=== PATIENT | male | born 1945 | race Caucasian/White ===

== ENCOUNTER 2024-04-04 11:56 | Inpatient (IN) | payer MEDICARE, OTHER, SELFPAY ==
[2024-04-04] VITALS (17 sets, daily range): BP systolic 30–184; BP diastolic 53–109; PULSE 81–94
--- NOTE | 2024-04-04 10:41 | ED.GENMED ---
ED Provider Triage
<Ian Kirk PA-C - Last Filed: 04/04/24 10:42>
-
Patient seen by provider in Triage?: Seen in Triage
Attestation: A medical screening examination has been initiated by a qualified medical provider. Based on the assessment performed at this time, it has been determined that an emergent medical condition may exist and the patient has been informed
that further medical evaluation and possible additional diagnostic testing may be needed.
HPI: 78-year-old male presents with painful cold and numb left lower leg. He states it is painful from the knee down. At triage his left lower leg is cold to the touch and we are unable to easily find pulses to the foot. Notified nurse to find
him a room immediately.
GENERAL: Alert , in no apparent distress
EYE: No visual abnormalities.
NECK: Trachea midline
ENT: No visible abnormalities.
LUNGS: No acute respiratory distress
NEUROLOGICAL: Alert and oriented
SKIN: Skin intact. No visible changes.
MUSCULOSKELETAL: Moving extremities normally
PSYCH: Normal and appropriate interaction.
This is a medical evaluation conducted in person to initiate diagnostic evaluation and provide initial therapeutics. Please see further documentation by the treating clinician.
History of Present Illness
<Ian Kirk PA-C - Last Filed: 04/04/24 10:42>
General
Chief Complaint: Circulation Problem
Time Seen by Provider: 04/04/24 10:43
<Ming Rocha PA-C - Last Filed: 04/04/24 12:52>
General
Source: patient
History of Present Illness
History of Present Illness:
78-year-old male with past medical history of previous AAA status post repair in 2021, hypertension, anemia, COPD presenting to the emergency department after awakening this morning at 8 AM and noticing his left lower extremity was cold, limited
range of motion, and increased pain. Patient states he has never had any history of similar. Denies any symptoms consistent with claudication recently. Denies any fevers or any other concerns. Patient notes he does not take any anticoagulant
medicine although he does have aspirin listed on his medication list.
Past History
<Ian Kirk PA-C - Last Filed: 04/04/24 10:42>
Past History
ED Past Medical History: HTN and Hypercholesterolemia
ED Past Surgical History: Other (Hernia repair, AAA repair)
Social History
Tobacco: Non-smoker
Alcohol: None
Drug: None
Personal: Other
Living: with family
Employment: Other
Family History
Family History: Other
<Ming Rocha PA-C - Last Filed: 04/04/24 12:52>
Past History
ED Past Medical History: COPD and Other (Previous AAA repair)
Social History
Tobacco: Former smoker
Personal:
Living: alone
Review of Systems
<Ming Rocha PA-C - Last Filed: 04/04/24 12:52>
Review of Systems
All Other Systems: ROS reviewed and negative except as documented in HPI and ROS
Phy Exam
<Ming Rocha PA-C - Last Filed: 04/04/24 12:52>
Physical Exam
Physical Exam:
GENERAL: Alert , in no apparent distress
EYE: conjunctiva clear
NECK: Supple, no significant adenopathy.
ENT: o/p clr, mmm.
CARDIAC: Regular rate and rhythm
LUNGS: Clear breath sounds bilaterally, no acute respiratory distress, no wheezes/rales/rhonchi
NEUROLOGICAL: Alert and oriented
SKIN: Warm and dry, left lower extremity from the ankle distal is cyanotic
MUSCULOSKELETAL: left lower extremity: Cold, unable to range of motion toes, able to slightly invert and leana ankle but unable to plantar or dorsiflex. Unable to appreciate a pedal or tibial pulse via palpation or with Doppler. Palpable popliteal
and femoral pulse
PSYCH: Normal and appropriate interaction.
Scores
<Ming Rocha PA-C - Last Filed: 04/04/24 12:52>
Heart Failure Risk
Heart Failure Risk Score: Not Applicable
Heart Score for Chest Pain Patients
STEMI patient?: Not applicable
Withdrawal Assessment of Alcohol
Withdrawal Assessment Completed?: Not applicable
Course
<Ian Kirk PA-C - Last Filed: 04/04/24 10:42>
Orders/Labs/Results
Orders:
Orders
04/04/24 10:46
CT Abd Aorta Angio W/ Run Off Urgent
Comment:
Reason For Exam: cold, pale LLE
Heparin 5,000 units IV NOW STA
Pharmacy Request to Place See Dose Instructions PO NOW STA
Discontinue all Active Warfarin orders?: Yes
04/04/24 10:56
Type+Screen Urgent
Basic Metabolic Panel Urgent
Complete Blood Count/With Diff Urgent
PTT Urgent
Prothrombin Time Urgent
04/04/24 10:[address] Non Medication Order As Directed
Physician Order: PTT 6 hours after initial start of Heparin infusion
Above order entered?: Yes
04/04/24 11:00
Heparin 80261 Units/250 ml 25,000 units in 250 ml IV PER PROTOCOL
Weight to be used for heparin protocol in kilograms (kg):: 87.4
Protocol:: Vascular Surgery
PTT Goal Range to be used:: PTT 73 to 111 seconds
Order type:: Initial
INITIAL Infusion Dose (UNITS/KG/hr) & then follow protocol:: 18 units/kg/hr
Infusion Dose in UNITS/hr & then follow protocol (UNITS/hr):: 1,600
INFUSION RATE in mL/hr & then follow protocol (mL/hr):: 16
PTT less than or equal to 64 seconds:: Notify Ordering Provider. obtain orders for rate increase &
possible bolus
PTT 64.1 to 72.9 seconds:: Increase rate by 100 units/hr (+ 1 mL/hr)
PTT 73 to 111 seconds:: Target Range. No change in rate.
PTT 111.1 to 130.9 seconds:: Decrease rate by 100 units/hr (- 1 mL/hr)
PTT 131 to 199.9 seconds:: HOLD for 1 hour. Then decrease rate by 200 units/hr (- 2 mL/hr)
PTT greater than or equal to 200 seconds:: STOP INFUSION. Notify Ordering provider to obtain further orders.
Lab follow-up:: Each change, PTT q6h until 2 consecutive are therapeutic. Then PTT
daily.
Pharmacy Request to Place See Dose Instructions IV DIRECTED
04/04/24 11:22
Code Status As Directed
Resuscitation Status: Full Code
Bisacodyl [Dulcolax] 10 mg RECTAL [id number] PRN
Docusate W/Senna [Senokot-S] 1 tablet PO BIDPRN PRN
Polyethylene Glycol Powder [Miralax] 17 grams PO DAILYPRN PRN
Activity As Directed
Activity Level: Bedrest
Vascular Checks As Directed
Location: q1h
Vital Signs As Directed
Frequency: Per unit guidelines
04/04/24 11:24
Admit/Transfer Patient As Directed
Co-Sign Provider:
Level of Care: Inpatient admission
Assign to:: ICU
Physician / Group: Hospitalist: Fabian
Diagnosis: Acute LLE ischemia
Reason for Hospitalization: Acute LLE ischemia
Expected length of stay greater than two midnights?: Yes
ELOS- Estimated Length of Stay in days: 3
I certify the patient meets the requirements for IP care: Yes
Electrocardiogram (*1) Urgent
Reason for Study: PreOp
EKG- Treatment ONCE
PRN Pain Medication Management As Directed
May give lesser potent ordered pain med per pt: Yes
preference::
Protocol:: Medication orders for pain may be administered in a
manner that supports deferring to patient preference
when the pt is:
- Requesting an ordered lesser potent pain medication.
Least to most potent pain medications are defined
as: acetaminophen < NSAID < tramadol < opioids
(morphine, oxycodone, hydromorphone).
- Requesting a lesser dose of the same medication IF
ORDERED.
- Requesting a less intrusive route of administration
if both routes are prescribed by the provider (PO <
IV).
04/04/24 11:44
Dexamethasone Sod Phosphate [Decadron] 20 mg .ROUTE .STK-MED ONE
Heparin 10,000 units .ROUTE .STK-MED ONE
Lidocaine HCl/Pf [Xylocaine-Mpf 1% Vial] 50 mg .ROUTE .STK-MED ONE
Ondansetron Injectable [Zofran] 4 mg .ROUTE .STK-MED ONE
Propofol [Diprivan] 20 ml .ROUTE .STK-MED
Rocuronium [place] [Rocuronium] 50 mg .ROUTE .STK-MED ONE
04/04/24 11:49
PRN Pain Medication Management As Directed
May give lesser potent ordered pain med per pt: Yes
preference::
Protocol:: Medication orders for pain may be administered in a
manner that supports deferring to patient preference
when the pt is:
- Requesting an ordered lesser potent pain medication.
Least to most potent pain medications are defined
as: acetaminophen < NSAID < tramadol < opioids
(morphine, oxycodone, hydromorphone).
- Requesting a lesser dose of the same medication IF
ORDERED.
- Requesting a less intrusive route of administration
if both routes are prescribed by the provider (PO <
IV).
04/04/24 11:50
Martial Arts Instructor Consult Routine
Consulting Provider: Trevor Guzmán
Was physician already notified: Yes
Reason for consult: acute LLE ischemia
04/04/24 11:52
Fentanyl Citrate/Pf [Sublimaze] 100 mcg .ROUTE .STK-MED ONE
HYDROmorphone [Dilaudid] 0.5 mg IV Q3HPRN PRN
HYDROmorphone [Dilaudid] 1 mg IV Q4HPRN PRN
Midazolam HCl [Versed] 2 mg .ROUTE .STK-MED ONE
04/04/24 Dinner
NPO
Allow oral meds: Yes
Allow clear liquids: No
NPO with Ice Chips: Yes
04/04/24 17:20
PTT Urgent
04/05/24 06:00
BMP [Basic Metabolic Panel] IN AM
CBC/With Diff [Complete Blood Count/With Diff] IN AM
Magnesium IN AM
Phosphorus IN AM
04/06/24 06:00
BMP [Basic Metabolic Panel] IN AM
CBC/With Diff [Complete Blood Count/With Diff] IN AM
Magnesium IN AM
Phosphorus IN AM
04/07/24 06:00
BMP [Basic Metabolic Panel] IN AM
CBC/With Diff [Complete Blood Count/With Diff] IN AM
Magnesium IN AM
Phosphorus IN AM
Abnormal Lab Results
04/04/24
10:56
WBC 13.5 H 10^3/uL
(4.8-10.8)
RBC 4.41 L 10^6/uL
(4.70-6.10)
Hgb 12.4 L g/dL
(13.0-18.0)
MCHC 31.6 L g/dL
(33.0-37.0)
MPV 10.7 H fL
(7.4-10.4)
Abs Immat Gran (auto) 0.1 H 10^3/uL
(0-0.05)
Absolute Neuts (auto) 11.2 H 10^3/uL
(1.4-6.5)
Absolute Monos (auto) 0.8 H 10^3/uL
(0.1-0.6)
Immature Gran % 0.6 H %
(0-0.5)
Neutrophils % 83.2 H %
(42.2-75.2)
Lymphocytes % 8.8 L %
(20.5-51.1)
PT 14.7 H Sec
(11.4-14.6)
BUN 23 H mg/dl
(9-20)
Glucose 203 H mg/dl
(70-99)
04/04/24 10:56
04/04/24 10:56
Vital Signs
Initial and Last Documented VS:
Initial Vital Signs
Temp Pulse Resp BP Pulse Ox
98.1 F 64 16 184/97 99
04/04/24 10:31 04/04/24 10:31 04/04/24 10:31 04/04/24 10:31 04/04/24 10:31
Last Documented Vital Signs
Temp Pulse Resp BP Pulse Ox
98.1 F 68 33 180/97 98
04/04/24 10:31 04/04/24 12:30 04/04/24 12:30 04/04/24 12:00 04/04/24 12:30
<Ming Rocha PA-C - Last Filed: 04/04/24 12:52>
Orders/Labs/Results
Orders:
Orders
04/04/24 10:46
CT Abd Aorta Angio W/ Run Off Urgent
Comment:
Reason For Exam: cold, pale LLE
Heparin 5,000 units IV NOW STA
Pharmacy Request to Place See Dose Instructions PO NOW STA
Discontinue all Active Warfarin orders?: Yes
04/04/24 10:56
Type+Screen Urgent
Basic Metabolic Panel Urgent
Complete Blood Count/With Diff Urgent
PTT Urgent
Prothrombin Time Urgent
04/04/24 10:[address] Non Medication Order As Directed
Physician Order: PTT 6 hours after initial start of Heparin infusion
Above order entered?: Yes
04/04/24 11:00
Heparin [id number] Units/250 ml 25,000 units in 250 ml IV PER PROTOCOL
Weight to be used for heparin protocol in kilograms (kg):: 87.4
Protocol:: Vascular Surgery
PTT Goal Range to be used:: PTT 73 to 111 seconds
Order type:: Initial
INITIAL Infusion Dose (UNITS/KG/hr) & then follow protocol:: 18 units/kg/hr
Infusion Dose in UNITS/hr & then follow protocol (UNITS/hr):: 1,600
INFUSION RATE in mL/hr & then follow protocol (mL/hr):: 16
PTT less than or equal to 64 seconds:: Notify Ordering Provider. obtain orders for rate increase &
possible bolus
PTT 64.1 to 72.9 seconds:: Increase rate by 100 units/hr (+ 1 mL/hr)
PTT 73 to 111 seconds:: Target Range. No change in rate.
PTT 111.1 to 130.9 seconds:: Decrease rate by 100 units/hr (- 1 mL/hr)
PTT 131 to 199.9 seconds:: HOLD for 1 hour. Then decrease rate by 200 units/hr (- 2 mL/hr)
PTT greater than or equal to 200 seconds:: STOP INFUSION. Notify Ordering provider to obtain further orders.
Lab follow-up:: Each change, PTT q6h until 2 consecutive are therapeutic. Then PTT
daily.
Pharmacy Request to Place See Dose Instructions IV DIRECTED
04/04/24 11:22
Code Status As Directed
Resuscitation Status: Full Code
Bisacodyl [Dulcolax] 10 mg RECTAL [id number] PRN
Docusate W/Senna [Senokot-S] 1 tablet PO BIDPRN PRN
Polyethylene Glycol Powder [Miralax] 17 grams PO DAILYPRN PRN
Activity As Directed
Activity Level: Bedrest
Vascular Checks As Directed
Location: q1h
Vital Signs As Directed
Frequency: Per unit guidelines
04/04/24 11:24
Admit/Transfer Patient As Directed
Co-Sign Provider:
Level of Care: Inpatient admission
Assign to:: ICU
Physician / Group: Hospitalist: Fabian
Diagnosis: Acute LLE ischemia
Reason for Hospitalization: Acute LLE ischemia
Expected length of stay greater than two midnights?: Yes
ELOS- Estimated Length of Stay in days: 3
I certify the patient meets the requirements for IP care: Yes
Electrocardiogram (*1) Urgent
Reason for Study: PreOp
EKG- Treatment ONCE
PRN Pain Medication Management As Directed
May give lesser potent ordered pain med per pt: Yes
preference::
Protocol:: Medication orders for pain may be administered in a
manner that supports deferring to patient preference
when the pt is:
- Requesting an ordered lesser potent pain medication.
Least to most potent pain medications are defined
as: acetaminophen < NSAID < tramadol < opioids
(morphine, oxycodone, hydromorphone).
- Requesting a lesser dose of the same medication IF
ORDERED.
- Requesting a less intrusive route of administration
if both routes are prescribed by the provider (PO <
IV).
04/04/24 11:44
Dexamethasone Sod Phosphate [Decadron] 20 mg .ROUTE .STK-MED ONE
Heparin 10,000 units .ROUTE .STK-MED ONE
Lidocaine HCl/Pf [Xylocaine-Mpf 1% Vial] 50 mg .ROUTE .STK-MED ONE
Ondansetron Injectable [Zofran] 4 mg .ROUTE .STK-MED ONE
Propofol [Diprivan] 20 ml .ROUTE .STK-MED
Rocuronium [place] [Rocuronium] 50 mg .ROUTE .STK-MED ONE
04/04/24 11:49
PRN Pain Medication Management As Directed
May give lesser potent ordered pain med per pt: Yes
preference::
Protocol:: Medication orders for pain may be administered in a
manner that supports deferring to patient preference
when the pt is:
- Requesting an ordered lesser potent pain medication.
Least to most potent pain medications are defined
as: acetaminophen < NSAID < tramadol < opioids
(morphine, oxycodone, hydromorphone).
- Requesting a lesser dose of the same medication IF
ORDERED.
- Requesting a less intrusive route of administration
if both routes are prescribed by the provider (PO <
IV).
04/04/24 11:50
Martial Arts Instructor Consult Routine
Consulting Provider: Trevor Guzmán
Was physician already notified: Yes
Reason for consult: acute LLE ischemia
04/04/24 11:52
Fentanyl Citrate/Pf [Sublimaze] 100 mcg .ROUTE .STK-MED ONE
HYDROmorphone [Dilaudid] 0.5 mg IV Q3HPRN PRN
HYDROmorphone [Dilaudid] 1 mg IV Q4HPRN PRN
Midazolam HCl [Versed] 2 mg .ROUTE .STK-MED ONE
04/04/24 Dinner
NPO
Allow oral meds: Yes
Allow clear liquids: No
NPO with Ice Chips: Yes
04/04/24 17:20
PTT Urgent
04/05/24 06:00
BMP [Basic Metabolic Panel] IN AM
CBC/With Diff [Complete Blood Count/With Diff] IN AM
Magnesium IN AM
Phosphorus IN AM
04/06/24 06:00
BMP [Basic Metabolic Panel] IN AM
CBC/With Diff [Complete Blood Count/With Diff] IN AM
Magnesium IN AM
Phosphorus IN AM
04/07/24 06:00
BMP [Basic Metabolic Panel] IN AM
CBC/With Diff [Complete Blood Count/With Diff] IN AM
Magnesium IN AM
Phosphorus IN AM
Abnormal Lab Results
04/04/24
10:56
WBC 13.5 H 10^3/uL
(4.8-10.8)
RBC 4.41 L 10^6/uL
(4.70-6.10)
Hgb 12.4 L g/dL
(13.0-18.0)
MCHC 31.6 L g/dL
(33.0-37.0)
MPV 10.7 H fL
(7.4-10.4)
Abs Immat Gran (auto) 0.1 H 10^3/uL
(0-0.05)
Absolute Neuts (auto) 11.2 H 10^3/uL
(1.4-6.5)
Absolute Monos (auto) 0.8 H 10^3/uL
(0.1-0.6)
Immature Gran % 0.6 H %
(0-0.5)
Neutrophils % 83.2 H %
(42.2-75.2)
Lymphocytes % 8.8 L %
(20.5-51.1)
PT 14.7 H Sec
(11.4-14.6)
BUN 23 H mg/dl
(9-20)
Glucose 203 H mg/dl
(70-99)
04/04/24 10:56
04/04/24 10:56
Vital Signs
Initial and Last Documented VS:
Initial Vital Signs
Temp Pulse Resp BP Pulse Ox
98.1 F 64 16 184/97 99
04/04/24 10:31 04/04/24 10:31 04/04/24 10:31 04/04/24 10:31 04/04/24 10:31
Last Documented Vital Signs
Temp Pulse Resp BP Pulse Ox
98.1 F 68 33 180/97 98
04/04/24 10:31 04/04/24 12:30 04/04/24 12:30 04/04/24 12:00 04/04/24 12:30
Floor Service Worker Spring consulted with Physician
Floor Service Worker Spring consulted with physician?: Yes
Name of Physician Consulted: Janet
<Ming Rocha PA-C - Last Filed: 04/04/24 12:52>
MDM/Problems Addressed
Differential Diagnosis Includes:
Acute limb ischemia, DVT, peripheral vascular disease
MDM/Problems Addressed:
78-year-old male presenting the emergency department for evaluation of cold and pale left lower extremity with symptoms reportedly starting this morning. Clinical concern for severe acute limb ischemia. Labs, stat CTA and heparin ordered. Will
call vascular surgery with anticipation that patient will need to go to the OR [facility].
<Ming Rocha PA-C - Last Filed: 04/04/24 12:52>
*Radiology
Radiology exam reviewed: radiology read reviewed
*Pulse Oximetry
Patient hypoxic: no
*Etch Operator [employer] Interpretation
Rate: normal
Rhythm: sinus
*Critical Care Note
Total Time (30-74mins, 75-104mins- exclusive of procedures): 30
comment:
Critical care statement: A total of 30 minutes of critical care time was provided for this patient. This includes management of unstable vital signs, evaluation of the patient at bedside, reviewing the patient's pertinent medical records, discussion
with consultants, review of old EKGs and review of pertinent medical records. This time with separate from time utilized to perform the aforementioned documented procedures
Data Reviewed
Review of Other/Old Records Reveals: Records and Operative Reports
Source: patient and records
<Ming Rocha PA-C - Last Filed: 04/04/24 12:52>
Patient Management
Discussion with other providers: Construction Estimator
Escalation/DeEscalation of care consider admission/obs:
10:45 AM: Call placed to vascular surgery due to concern for critical lower extremity limb ischemia. They will come to the ER to see the patient. Stat labs, CTA and heparin ordered. Patient will likely be needing to go to the OR.
11:30 AM: Received call from radiology that patient has acute limb ischemia at the level of the external iliac artery. Vascular surgery notified and made aware. They will be planning to take patient to the OR [facility]. Hospitalist team was notified
and accepts patient for continued evaluation and treatment.
ED Attending Note
<Ian Kirk PA-C - Last Filed: 04/04/24 10:42>
-
Portions of this chart may have been created with voice recognition software.� Occasional wrong word or��sound alike� substitutions may have occurred due to the inherent limitations of voice recognition software.
Discharge Plan
Departure
Patient Disposition: Admit
Date of Disposition: 04/04/24
Time of Disposition: 11:30
Presentation/result/management discussed w/ accepting MD/DO: Hospitalist
Discharge Problem:
Acute occlusion of artery of lower extremity
Interventions
Interventions:
*Risk Screen - Suicide Last Done: 04/04/24 10:31
*General Assessment Last Done: 04/04/24 10:59
*Neglect/Abuse Screening Last Done: 04/04/24 10:59
ED- Fall Risk Assessment Last Done: 04/04/24 11:26
*ED COVID-19 Vaccine History Last Done: 04/04/24 10:59
*Nursing Disposition Last Done: 04/04/24 12:49
ED-Peripheral Vascular Assessment Last Done: 04/04/24 10:59
Discharge Date and Time
Discharge Date/Time: 04/04/24 12:50
[2024-04-04] MEDS: HEPARIN 5000 UNITS IV (11:17)
[2024-04-04 11:20] LABS: % Basophils 0.4 % (0-2); % Eosinophils 1.3 % (0-6); % Immature Granulocytes 0.6 % (0-0.5); % Lymphocytes 8.8 % (20.5-51.1); % Monocytes 5.7 % (1.7-9.3); % Neutrophils 83.2 % (42.2-75.2); Absolute Basophils 0.1 10^3/uL (0-0.2); Absolute Eosinophils 0.2 10^3/uL (0-0.7); Absolute Immature Granulocytes 0.1 10^3/uL (0-0.05); Absolute Lymphocytes 1.2 10^3/uL (1.2-3.4); Absolute Monocytes 0.8 10^3/uL (0.1-0.6); Absolute Neutrophils 11.2 10^3/uL (1.4-6.5); Hematocrit 39.3 % (39.0-52.0); Hemoglobin 12.4 g/dL (13.0-18.0); Mean Corp Hgb Conc. 31.6 g/dL (33.0-37.0); Mean Corpuscular Hgb 28.1 pg (27.0-31.0); Mean Corpuscular Volume 89.1 fL (80.0-94.0); Mean Platelet Volume 10.7 fL (7.4-10.4); Nucleated Red Blood Cells % 0 % (-); Platelet Count 212 10^3/uL (130-400); Red Blood Cell Count 4.41 10^6/uL (4.70-6.10); Red Cell Dist. Width 13.4 % (11.5-14.5); White Blood Cell Count 13.5 10^3/uL (4.8-10.8)
[2024-04-04 11:21] LABS: PT 14.7 Sec (11.4-14.6)
[2024-04-04 11:22] LABS: APTT 27.8 Sec (23.4-35.0)
[2024-04-04] MEDS: HEPARIN 25000 UNITS/250 ML IV (11:23)
[2024-04-04 11:24] LABS: Blood Urea Nitrogen 23 mg/dl (9-20); Calcium 9.6 mg/dl (8.4-10.2); Carbon Dioxide 23 mmol/L (22-30); Chloride 106 mmol/L (98-107); Glucose 203 mg/dl (70-99); Potassium 4.2 mmol/L (3.5-5.1); Sodium 141 mmol/L (135-145); eGFR > 60.00
--- NOTE | 2024-04-04 11:34 | HPS.HSE ---
Addendum entered and electronically signed by Akin Peralta DO 04/05/24 13:12:
Allergies
Allergy/AdvReac Type Severity Reaction Status Date / Time
No Known Allergies Allergy Verified 04/04/24 10:43
Home Medications
aspirin 81 mg tablet,delayed release 81 mg PO DAILY Blood Clot Prevention/Tx 03/18/22
enalapril maleate 20 mg tablet (Vasotec) 20 mg PO DAILY Blood Pressure 03/18/22
metoprolol tartrate 50 mg tablet (Lopressor) 50 mg PO BID Heart Disease/Condition 03/18/22
multivitamin 1 tab PO DAILY Supplement 03/18/22
pravastatin 40 mg tablet 40 mg PO QPM High Cholesterol 03/18/22
Original Note:
Family Physician
-
Family Physician: INTERVIEWE UNKNOWN - PT NOT
Chief Complaint
-
Left leg pain and coldness
History of Present Illness
Mr. Hunt is a 78-year-old male with a medical history of hypertension, CAD (status post PCI 2004), bilateral popliteal artery aneurysms, AAA (status post repair at [facility] and 08/2021), longtime smoker (half pack per day x 50 years current smoker), and
hernia repair who presents from home with acute onset left leg pain and coldness. Symptoms started this morning and he has been experiencing pain from his left knee down through his foot and says his left leg feels cold. He denies thigh or groin
pain. He has known popliteal aneurysms bilaterally that have been monitored in the outpatient setting. Patient reports he has never noticed a temperature difference between his legs prior to today. He denies focal weakness, fevers/chills,
shortness of breath, abdominal pain, nausea or vomiting.
In the ED, he was found to be mildly hypertensive with initial BP of 184/97. Labs were remarkable for leukocytosis of 13.5, hemoglobin 12.4, and a glucose of 203. EKG showed no acute changes. He was immediately started on IV heparin drip and
evaluated by vascular surgery team. He has been kept n.p.o. pending OR with vascular surgery for intervention on his left lower extremity for apparent acute limb ischemia.
Medical History
Past Medical History
Past Medical History: Reports CAD (PCI 2004), HTN and Other (Bilateral popliteal artery aneurysms)
Past Surgical History: Reports Other (Hernia repair, AAA repair)
Social History
Tobacco: Smoker (Half pack per day x 50 years current smoker)
Alcohol: None
Drug: None
Family History
Family History: Not pertinent
Allergies / Home Medications
Allergies reflects when Allergies were last updated in [employer].
Home Medications with original date entered in [employer]
Allergy/Medication List:
Review of Systems
-
History Source: Patient
A 12 point ROS was completed and negative except as noted: Yes
Musculoskeletal: Reports Other (Left leg pain and coldness below knee)
Physical Exam
Vital Signs
Vital Signs
Temp Pulse Resp BP Pulse Ox
98.1 F 67 27 177/97 99
04/04/24 10:31 04/04/24 11:00 04/04/24 11:00 04/04/24 11:00 04/04/24 11:00
Physical Exam
General: No Apparent Distress
Laboratory Results
-
04/04/24 10:56
04/04/24 10:56
Laboratory Results
PT 14.7 Sec (11.4-14.6) H 04/04/24 10:56
INR 1.10 04/04/24 10:56
APTT 27.8 Sec (23.4-35.0) 04/04/24 10:56
Impression/Plan
-
Gen-AAOx3, NAD
HEENT-NC, AT, anicteric, clear oral mm
Neck-supple
CV-reg, no M, +S1/S2
Lungs-clear B/L
Abd-soft, NT, ND
Musculoskeletal-no edema, left lower extremity pallor and cool to touch from just below knee through toes
Skin-warm and dry
Neuro-grossly non-focal
Psych-calm, cooperative
Mr. Hunt is a 78-year-old male with a medical history of hypertension, CAD (status post PCI 2004), bilateral popliteal artery aneurysms, AAA (status post repair at [facility] and 08/2021), longtime smoker (half pack per day x 50 years current smoker), and
hernia repair who presents from home with acute onset left leg pain and coldness. In the ED, he was found to be mildly hypertensive with initial BP of 184/97. Labs were remarkable for leukocytosis of 13.5, hemoglobin 12.4, and a glucose of 203. He
was immediately started on IV heparin drip and evaluated by vascular surgery team. He has been kept n.p.o. pending OR with vascular surgery for intervention on his left lower extremity for apparent acute limb ischemia.
Acute limb ischemia:
-Left lower extremity painful and cool to touch below knee through toes
-Continue IV heparin drip
-N.p.o. pending OR with vascular surgery
-Pain control as needed
-ICU consult
-Further recommendations per vascular surgery
Hypertension:
-Chronic
-Continue home enalapril 20 mg daily
-Additional IV hydralazine as needed for SBP greater than 160
CAD:
-Stable, status post PCI with stents 2004
-Continue low-dose aspirin and high intensity statin
-Beta-blockade with Toprol tartrate 50 mg p.o. twice daily
Tobacco abuse:
-Longtime current smoker, half pack per day x 50 years
-Encouraged cessation, nicotine patch offered but declined at this time
CODE STATUS: Full code
--- NOTE | 2024-04-04 12:00 | CON.VAS ---
Consultation
Consultation Request
Date/Time Consultation Performed: 04/04/24 1055
Requesting Provider: Ming Rocha PA-C
Performing Provider: PRITI OrellanaC for Rob Terrazas III, MD
Reason for Consultation: Acute limb-threatening ischemia
Medical History
-
Chief Complaint: Acute on chronic ischemia
History of Present Illness:
This is a 78 year old male patient with significant past medical history for CAD, HTN, AAA (repaired via endo at outside hospital), and BL popliteal artery aneurysms who presents to [facility] with reports of acute left cold foot starting this AM
around roughly 8am when he woke up. Of note patient is known to our vascular surgery group as he underwent diagnostic BL lower extremity angiogram for preoperative planning to repair BL popliteal artery aneurysm in April of 2022. Patient was
recommend to schedule surgical intervention but never followed up/agreed to schedule surgery he states he 'wanted to hold off as long as a he could.' He also then never agreed/called to schedule follow up appointments. He now presents with physical
exam findings suggestive of acute limb threatening ischemia that he endorses began at 8am this morning. He has dense motor deficits from below the knee down on left foot and endorses no tactile sensation at any part of his left foot. Prior to waking
this AM he denies any signs or symptoms of claudication or rest pain and states he takes his dog on long walks without issue or pain.
Past Medical History
Past Medical History: CAD (PCI 2004) and HTN
Past Surgical History: Other (Hernia repair, AAA repair)
Social History
Tobacco: Smoker (Half pack per day x 50 years current smoker)
Alcohol: None
Drug: None
Allergies / Home Medications
Allergy/AdvReac Type Severity Reaction Status Date / Time
No Known Allergies Allergy Verified 04/04/24 10:43
�Medication �Instructions �Recorded �Confirmed �Type
aspirin 81 mg tablet,delayed 81 mg PO DAILY 03/18/22 04/04/24 History
release
enalapril maleate 20 mg tablet 20 mg PO DAILY 03/18/22 04/04/24 History
(Vasotec)
metoprolol tartrate 50 mg tablet 50 mg PO BID 03/18/22 04/04/24 History
(Lopressor)
multivitamin 1 tab PO DAILY 03/18/22 04/04/24 History
pravastatin 40 mg tablet 40 mg PO QPM 03/18/22 04/04/24 History
Review of Systems
-
History Source: Patient
Constitutional: Reports No Symptoms
EENT: Reports No Symptoms
Respiratory: Reports No Symptoms
Cardiac: Reports No Symptoms
Vascular: Reports Numbness, Tingling and Other (endorses that he cannot feel his left foot )
Abdomen/GI: Reports No Symptoms
: Reports No Symptoms
Musculoskeletal: Reports No Symptoms
Skin: Reports Other (left foot dusky and cool )
Neurological: Reports No Symptoms
Endocrine: Reports No Symptoms
Physical Exam
Vital Signs
Temp Pulse Resp BP Pulse Ox
98.1 F 68 33 180/97 98
04/04/24 10:31 04/04/24 12:30 04/04/24 12:30 04/04/24 12:00 04/04/24 12:30
Lab Results
04/04/24 10:56
04/04/24 10:56
Physical Exam
General: No Apparent Distress
HEENT: Normocephalic, Anicteric and Atraumatic
Respiratory: Non Labored Respirations
Cardiac: Negative JVD
GI: Soft, Non Tender and Non Distended
Musculoskeletal: No Edema and Other (unable to move left foot no evidence of plantar or dorsi flexion, unbale to move digits of left foot, denies sensation of touch at left foot )
Skin: Warm and Other (left foot cold, cyanotic, cap refill greater than 5 seconds)
Neuro: AO x 3
Pulses: Bilateral Femoral: +2, Right Popliteal: +2 (Absent left popliteal, DP, and PT pulse ), Right Dorsalis Pedis: +2 and Right Posterior Tibial: +2
Assessment / Plan
-
Assessment: 78 year old male with left lower extremity acute limb threatening ischemia and BL popliteal artery aneurysm
Plan:
Stat CT angio with run off pending
High suspicion patient has occluded at least popliteal artery aneurysm off MARGE, suspect he will need emergent OR for revascularization of LLE, possible thrombectomy, possible bypass, possible fasciotomy. Official OR plan per attending following CT
results.
Initiate heparin infusion
NPO
Blood work with type and screen
Plan relayed to account resolution analyst surgeon Dr. Rob Terrazas III
--- NOTE | 2024-04-04 12:30 | W.PN.UPDATE ---
Update Note
Progress Note Update
Please refer to full consult note in the chart for additional details.
Patient seen and examined in the emergency department with LORRIE Rinaldi
Patient is known to me from previous encounters for popliteal artery aneurysm evaluation bilaterally
Known bilateral pop artery aneurysms
Previous EVAR for AAA at [facility]SH
I had performed bilateral lower extremity arteriograms for pop aneurysm surgical planning in April 2022
Patient declined surgical intervention at that time and 'wanted to hold off '
Has not been seen since that time. LTFU
Now presents with acute limb ischemia of his left lower extremity
Dense motor deficits below the knee on the left starting at 8 AM when he woke up
On physical exam he has a palpable left femoral pulse. No Doppler signals at the pop or in the left foot
Left foot is ischemic appearing, bluish discoloration and cold compared to the right.
CT angiogram images were personally reviewed. The left common femoral artery and profunda femoral artery are patent. The left superficial femoral artery and popliteal artery are thrombosed. There is no arterial flow below the knee.
My recommendation is for immediate operative revascularization. Thrombectomy, left lower extremity bypass and lower extremity fasciotomies. The technical aspects of this procedure were discussed with him and his daughter Ana via telephone.
The benefits and rationale for this approach were discussed with both of them in detail. Operative risks were discussed with them in detail including but not limited to , heart attack, bleeding, stroke, limb loss, infection, wound healing
complications, leg swelling, ongoing pain and the need for additional surgery. I was clear to highlight the high risk of limb loss in this particular situation.
Both patient and his daughter expressed a clear understanding of our conversation and agreed to proceed with surgery as detailed above.
Heparin drip has already been started
Rob Terrazas III, MD
[facility] Vascular Surgery
[phone] (urzd)
--- NOTE | 2024-04-04 12:45 | W.SUR.PREOP ---
Pre-Operative Surgical Note
-
I have examined this patient prior to the performance of the scheduled procedure.
The patient's condition is unchanged from the time of the current History and
Physical and the patient is able to undergo the scheduled procedure.
[2024-04-04 13:11] LABS: ACT-LR - POC 187 Seconds (116-155)
[2024-04-04 13:20] LABS: B.E. - POC 2.1 mmol/L; Glucose - POC 130 mg/dl (70-99); HCO3 - POC 28 mmol/L (21-28); Hematocrit - POC 34 % PCV (42-52); Hemodilution- POC Yes; Hemoglobin Calculated - POC 11.4; Ionized Calcium - POC 1.18 mmol/L (1.15-1.33); Lactate - POC 1.83 mmol/L (0.36-0.75); O2 Saturation %Calculated-POC 99.8 % (94-98); PCO2 - POC 51 mmHg (35-48); PO2 - POC 262 mmHg (83-108); Sodium - POC 143 mmol/L (136-145); Specimen Type - POC Arterial; pH - POC 7.36 (7.35-7.45)
[2024-04-04 13:21] LABS: ACT-LR - POC 334 Seconds (116-155)
[2024-04-04 14:18] LABS: ACT-LR - POC 266 Seconds (116-155)
[2024-04-04 14:27] LABS: ACT-LR - POC 292 Seconds (116-155)
[2024-04-04 15:23] LABS: ACT-LR - POC 242 Seconds (116-155)
--- NOTE | 2024-04-04 17:07 | W.IMMPOSTOP ---
Surgical Immed Post Op Note
-
Primary Surgeon: Mk
Assisting Surgeon: Isabel
Pre-op Diagnosis: acute limb threatening ischemia
Post-op Diagnosis: acute limb threatening ischemia
Procedure Performed: L FINISHING LAB TECHNICIAN to below knee popliteal artery bypass, thrombectomy of popliteal artery and anterior tibial artery
Anesthesia Type: General
Specimen / Cultures: None
Estimated Blood Loss: 500 cc
Complications: None
Operative Findings: L FINISHING LAB TECHNICIAN to below knee popliteal artery bypass, thrombectomy of popliteal artery and anterior tibial artery
--- NOTE | 2024-04-04 17:07 | OR.RPT ---
Operative Report
Operative Report
Date of Operation: 04/04/2024
Pre Op Diagnosis:
1. Acute limb ischemia left lower extremity
2. Thrombosed left popliteal artery aneurysm
Post Op Diagnosis:
1. Acute limb ischemia left lower extremity
2. Thrombosed left popliteal artery aneurysm
Procedure:
1. Thromboembolectomy of below the knee popliteal artery and tibial arteries via below-knee popliteal artery exposure
2. Left common femoral artery to below-knee popliteal artery bypass with 8 mm ring-reinforced PTFE graft
3. Thrombectomy of anterior tibial artery and dorsalis pedis artery via separate ankle incision
Surgeon: Rob Terrazas III, MD
Broadband Installer: Fox Hall MD PGY1
Anesthesia: General
Complications: None
Estimated Blood Loss: 500 cc
History and Indications for Procedure: 78-year-old male who presented with acute limb ischemia of the left lower extremity and a thrombosed popliteal artery aneurysm.
Procedure in Detail: Krzysztof Hunt was correctly identified and placed supine on the operating table. After adequate induction of anesthesia his abdomen, pelvis, bilateral groins and the entire left lower extremity and foot circumferentially were
prepped and draped in usual sterile fashion. He received preoperative antibiotics. A timeout procedure was performed with the nursing and anesthesia staff confirming the patient's identity as well as the nature and laterality of the procedure.
After the arterial line was placed we checked an ACT as the patient was already on systemic heparin. This was subtherapeutic and the patient was rebolused immediately. Subsequent to this we confirmed a therapeutic ACT.
I started by making a proximal medial calf incision to expose the below-knee popliteal artery. Electrocautery was used on the subcutaneous tissue. Sharp dissection was used to expose the below-knee popliteal artery. The artery was aneurysmal
below the knee but tapered to a normal diameter towards the anterior tibial artery origin and tibioperoneal trunk. I obtained vessel loop control of the below-knee popliteal artery at the distal portion of the aneurysm. There was no pulse in the
popliteal artery consistent with preoperative imaging. I continued sharp dissection distally and obtained individual loop control on the proximal anterior tibial artery and the tibioperoneal trunk. Review of his prior arteriogram from April 2022
revealed that his runoff was via the anterior tibial artery and peroneal artery but that the posterior tibial artery was chronically occluded. He had at that time he also had small vessel disease in the foot.
I made a transverse arteriotomy over the more normal diameter distal popliteal artery. Significant volume of thrombus was removed with forceps from the below-knee popliteal artery. I advanced a #3 Awilda catheter selectively down the anterior
tibial artery and returned significant amounts of thrombus. Multiple passes were performed until I returned no additional thrombus on 3 sequential passes. Very sluggish backbleeding was identified from the distal anterior tibial artery. The
artery was flushed with heparinized saline followed by 5 mg of tPA and the vessel loop was secured. Next I advanced a #3 Awilda catheter selectively down the tibioperoneal trunk. Again I returned significant amounts of thrombus. Multiple passes
were performed until I returned no additional thrombus on 3 sequential passes. Again there was sluggish backbleeding coming from the tibioperoneal trunk after thromboembolectomy. The artery was flushed with heparinized saline solution followed by
an additional 5 mg of tPA and the vessel loop was secured.
We then made a vertical groin incision over the left femoral pulse. Electrocautery and sharp dissection were used to expose the common femoral artery. The common femoral artery was aneurysmal and measured around 2 cm on the preoperative CTA. The
superficial femoral artery was ectatic. The proximal superficial femoral artery was exposed and controlled with a vessel loop. The proximal profunda femoral artery was exposed sharply and controlled with a vessel loop.
I then brought onto the field a 8 mm ring reinforced PTFE graft. This was tunneled in an anatomic plane between the left groin incision and the left below knee popliteal artery exposure. We took great care to keep proper orientation using the blue
escobedo on the graft.
I placed a Derra clamp on the proximal common femoral artery and secured the distal vessel loops. An 11 blade was used to make an arteriotomy on the distal common femoral artery. This was extended proximally distally with Antoine scissors. The
common femoral artery was flushed with heparinized saline solution. The proximal graft was beveled appropriately and an end-to-side anastomosis was created using a running 5-0 Prolene suture. Following completion of the anastomosis the proximal
clamp and distal Vesseloops were released. There was excellent pulsatile bleeding coming from the distal end of the graft. The suture line was inspected for hemostasis. I then retrograde flushed the graft from the distal end with heparinized
saline solution and placed a vascular clamp on the proximal graft just off the anastomosis. The left groin was then packed with dry gauze.
The distal graft below the knee was shortened appropriately. I placed an 0 silk tie on the popliteal artery below the knee below the aneurysm where the artery began to taper and ligated the below-knee popliteal artery. I then completely transected
the popliteal artery at the previous transverse arteriotomy from the thrombectomy. The 8 mm PTFE graft was sewn in an end-to-end fashion to the below-knee popliteal artery using a running 6-0 Prolene suture. Prior to the completion of the
anastomosis the graft clamp was released to forward flush. The area under the anastomosis was irrigated with heparinized saline solution. The anastomosis was completed. The distal vessel loops were released and the proximal graft clamp released
as well. There was an excellent pulse in the distal graft and both the exposed anterior tibial artery and tibioperoneal trunk.
After several minutes we still could not obtain Doppler signals in the foot. I therefore made the decision to cut down on the distal anterior tibial artery/dorsalis pedis artery at the left ankle. An incision was made vertically over the ankle
sulcus. Electrocautery and sharp dissection were used to dissected the distal anterior tibial artery/dorsalis pedis artery at this level. There was no pulse in the artery. Proximal and distal control was obtained with vessel loops. There was
thrombus clearly within the artery at this location. I made a transverse arteriotomy with an ophthalmic blade. Thrombus was removed from the artery with fine Arcadio forceps. I then passed a #2 Awilda balloon easily through the proximal anterior
tibial artery. On the initial pass I returned a small amount of additional thrombus. I then passed the catheter 2 additional times with no additional thrombus. At this point there was brisk pulsatile inflow established from the distal anterior
tibial artery. The proximal artery was flushed with heparinized saline solution and the vessel loop resecured. I passed the #2 Awilda catheter distally into the foot but returned no thrombus. Some backbleeding was identified from the distal
artery. I flushed an additional 6 mg of tPA into the foot through the distal artery. The vessel loop was secured. I repaired the artery primarily with interrupted 7-0 Prolene sutures. The vessel loops were then released. Upon release
immediately there was a pulse in the anterior tibial artery and dorsalis pedis artery.
At this point the suture lines in the left groin and below-knee popliteal artery were inspected closely and hemostasis was achieved. Through the below the knee popliteal artery exposure I opened up the superficial compartment further down to the
ankle using a sliding scissor technique. Additionally I opened up the deep posterior compartment through the medial calf exposure along the extent of this incision and further distal using scissor and blunt dissection. I then performed
fasciotomies of the anterior and lateral compartment using a single skin incision 3 fingerbreadths lateral to the tibia. Electrocautery was used to open the anterior compartment fascia and lateral compartment fascia along the length of the skin
incision. I used a sliding scissor technique to open up both the anterior and lateral compartments along the entire length of the calf. Hemostasis was then achieved and the wounds of the fasciotomy sites.
I then closely inspected the anterior tibial/dorsalis pedis repair for hemostasis which was achieved. This wound was irrigated with saline. The skin and subcutaneous tissue was reapproximated at this incision with vertical mattress nylon sutures.
The left groin was irrigated with saline solution. Hemostasis was achieved in the wound bed. The suture line was again inspected and was hemostatic. A #10 ELIZABETH drain was brought out through a separate stab incision in the left thigh and secured in
place with a nylon suture. The left groin incision was then closed in layers.
The left proximal calf incision was irrigated with saline solution. Hemostasis was achieved in the wound bed. The suture line was again inspected and was hemostatic. A #10 ELIZABETH drain was brought out through a separate stab incision in the calf and
secured in place with a nylon suture. The muscle was reapproximated loosely to provide coverage of the prosthetic graft below the knee. The skin and subcutaneous tissue was then reapproximated.
The anterior/lateral compartment fasciotomy incision was irrigated and packed with saline moistened gauze.
Sterile dressings were then applied. The foot, ankle and calf were gently wrapped with an Arden wrap.
At the conclusion of the case the patient had a biphasic Doppler signal at the distal anterior tibial artery. The patient had a weak monophasic Doppler signal over the posterior tibial location behind the medial malleolus. The foot color
significantly improved by the end of the case. These Doppler signals were marked at the skin level. The patient's heparin drip was reinitiated.
The patient tolerated the procedure well and was taken to the recovery area in critical but stable condition.
Attestation: I was present and responsible for the entire procedure
Signed:
Rob Terrazas III, MD
[facility] Vascular Surgery
[phone] (frym)
--- NOTE | 2024-04-04 17:42 | CON.INTV ---
Consultation
Consultation Request
Date/Time Consultation Requested: 04/04/2024
Date/Time Consultation Performed: 04/04/2024
Requesting Provider: Dr. Terrazas
Performing Provider: Dr. Joce Murphy
Reason for Consultation: Postoperative ICU care-status post thromboembolectomy
Medical History
-
History of Present Illness:
78-year-old man with past medical history significant for hypertension, coronary artery disease post PCI in 2004, tobacco abuse, bilateral popliteal artery aneurysms, AAA repair [facility] in 2021, prior hernia repair who presented from
home with acute onset left leg pain and coldness.
Because of suspicion of acute limb ischemia immediately started on heparin-evaluated emergently by the vascular surgery team.
He was diagnosed with acute life-threatening ischemia of the left lower extremity-underwent thromboembolectomy on 04/04/2024.
Now in PACU for close monitoring per protocol.
Denies any pain or SOB.
Asking for water but NPO for now, laying flat.
Not on vasopressors, A. line in place
Past Medical History
Past Medical History: Other (See assessment and plan)
Social History
Tobacco: Smoker (Ongoing 05-[id number]-rwcu history)
Alcohol: None
Drug: None
Family History
Family History: Reviewed & Not Pertinent
Allergies / Home Medications
Allergies
Allergy/AdvReac Type Severity Reaction Status Date / Time
No Known Allergies Allergy Verified 04/04/24 10:43
Home Medications
�Medication �Instructions �Recorded �Confirmed �Last Taken �Type
aspirin 81 mg tablet,delayed 81 mg PO DAILY 03/18/22 04/04/24 04/04/24 History
release 162 mg
enalapril maleate 20 mg tablet 20 mg PO DAILY 03/18/22 04/04/24 04/04/24 History
(Vasotec)
metoprolol tartrate 50 mg tablet 50 mg PO BID 03/18/22 04/04/24 04/04/24 History
(Lopressor)
multivitamin 1 tab PO DAILY 03/18/22 04/04/24 04/04/24 History
pravastatin 40 mg tablet 40 mg PO QPM 03/18/22 04/04/24 04/03/24 History
Review of Systems
Vitals / Labs / Diagnostic Testing
Vital Signs
Temp Pulse Resp BP Pulse Ox
98.1 F 82 23 101/73 100
04/04/24 10:31 04/04/24 17:30 04/04/24 17:30 04/04/24 17:30 04/04/24 17:30
Laboratory Results
04/04/24
10:56
PT 14.7 H
INR 1.10
APTT 27.8
Diagnostic Testing:
Physical Exam
-
HEENT: Normocephalic
Cardiovascular: S1/S2
Respiratory: Non-Labored Respirations
GI: Soft and Non Distended
Neurology: Awake
Skin: Other (LLE dressed, warm left foot)
General: Comfortable
Assessment
-
78-year-old man with past medical history noted. Admitted with acute leg pain. Found to have acute limb ischemia of the left lower extremity. Underwent thromboembolectomy on 04/04/2024. Subsequently transferred to the critical care unit for
further care
Acute limb ischemia left lower extremity
Thrombosed left popliteal artery aneurysm
Status post:
1. Thromboembolectomy of below the knee popliteal artery and tibial arteries via below-knee popliteal artery exposure-by Dr. Terrazas
2. Left common femoral artery to below-knee popliteal artery bypass with 8 mm ring-reinforced PTFE graft
3. Thrombectomy of anterior tibial artery and dorsalis pedis artery via separate ankle incision
Conditions present prior admission:
Coronary artery disease status post PCI 2004
Hypertension
Bilateral popliteal artery aneurysms
History of hernia repair
Status post AAA repair-2021 [facility]
Former smoker half a pack per day for 50 years-ongoing
Assessment and plan:
Postoperative surgical intensive care unit monitoring
Supplemental oxygen as needed
Incentive spirometry
Aspiration precautions
Neuro and vascular checks per protocol
Heparin drip will continue-follow PTT. Per vascular surgery.
Vascular surgery following-correspondence and operative notes reviewed
Monitor blood pressure
Continue antihypertensive
A. Line inplace
Slightly elevated lactate, trend, expected post op.
Not on pressors.
Follow drain output
Follow HH- Transfuse PRN
Analgesia with narcotics. Monitor respiratory status closely.
Follow blood sugars
Insulin supplementation as needed
Advance diet as tolerated
Currently NPO until able to HOB elevation.
Gentle IV fluid
Tobacco abuse [id number] history.
Will obtain a chest x-ray for baseline upon arrival to ICU
Currently does not qualify for lung cancer screening.
Will benefit from pulmonary evaluation at some point if patient desires.
DVT prophylaxis-on heparin drip
Will follow
[2024-04-04 17:46] LABS: Hematocrit 29.5 % (39.0-52.0); Hemoglobin 9.8 g/dL (13.0-18.0); Mean Corp Hgb Conc. 33.2 g/dL (33.0-37.0); Mean Corpuscular Hgb 28.9 pg (27.0-31.0); Mean Platelet Volume 10.3 fL (7.4-10.4); Platelet Count 172 10^3/uL (130-400); Red Blood Cell Count 3.39 10^6/uL (4.70-6.10); Red Cell Dist. Width 13.6 % (11.5-14.5); White Blood Cell Count 12.9 10^3/uL (4.8-10.8)
[2024-04-04 17:56] LABS: INR 1.36; Lactic Acid 2.2 mmol/L (0.7-2.0); PT 17.3 Sec (11.4-14.6)
[2024-04-04 18:01] LABS: Blood Urea Nitrogen 21 mg/dl (9-20); Calcium 8.1 mg/dl (8.4-10.2); Carbon Dioxide 20 mmol/L (22-30); Chloride 105 mmol/L (98-107); Estimated Creatinine Clearance 70 ml/min; Glucose 184 mg/dl (70-99); Potassium 4.7 mmol/L (3.5-5.1); Sodium 135 mmol/L (135-145); eGFR > 60.00
[2024-04-04 18:12] LABS: APTT > 200 Sec (23.4-35.0)
[2024-04-04] MEDS: LEVOPHED 250 IV ×2 (18:44→23:45)
--- NOTE | 2024-04-04 19:41 | SUR.PHASEI ---
Patient increasing requirements of vasopressor and saturated lateral fasciotomy site. MD Terrazas contacted. He request to redress the fasciotomy sites and have ICU team order a Hgb at 2100 with trends q4. ICU team made aware and told to come to
bedside for evaluation. Spinning Operator Jazmine and RASHEEDA Fletcher at bedside. RN-RN report given to RASHEEDA Fletcher and Spinning Operator Jazmine made aware about situation. Leg was dressed and patient was transported to ICU. Upon exit of PACU pt. dressing was C/D/I with
bleeding still occurring from the lateral leg site. Dorsal foot site was saturated with blood pocketing under Tegaderm, ICU team was also made aware. Pt. was endorsing 7/10 LLE pain with cap refill <2 seconds, and posterior tibial pulse and anterior
tibial pulse both present with a Doppler signal, known absent dorsal pedalis pulse by CATH team. Pt. was hypotensive with a Levophed gtt. running at 8mg/hr with SBP 90-100s, pt was in normal sinus rhythm with rates of 80-90s. Heprin gtt. was still
running as requested at the ordered rate per APR.
--- NOTE | 2024-04-04 19:44 | W.PN.UPDATE ---
Update Note
Progress Note Update
Called to PACU urgently for concern for increased bleeding at fasciotomy site on patients left lower leg and foot dusky in color. Site dressing taken down completely, blood oozing but to be expected with procedure and on heparin gtt. Clean, new
dressing applied and reinforced with humphrey wrap around left leg. Patient currently on levophed gtt for hypotension, will check serial H&H and replace PRBCs as needed. Called and updated Dr. Dai, vascular surgeon on patient status and continued
need for dressing changes, agreed with current plan.
[2024-04-04 20:48] LABS: Hematocrit 26.5 % (39.0-52.0); Hemoglobin 8.9 g/dL (13.0-18.0)
--- NOTE | 2024-04-04 20:49 | W.PN.UPDATE ---
Addendum entered and electronically signed by LORRIE Lugo 04/04/24 22:30:
2100- Blood consent obtained, patient stated he would accept blood but wanted his family to cosign he felt weak. Reviewed risk/benefits, answered all questions and consent obtained/signed by family.
Addendum entered and electronically signed by LORRIE Lugo 04/04/24 22:24:
2215- Dr. Dai at bedside, and had also spoke with Dr. Terrazas about patient. Discussed with family and patient that surgical intervention was not an option at this time, unable to re-vascularize the foot. No pedal or post tibial but Dr. Dai was
able to find a pulse tracking near the incision site but nothing below; the foot remains dusky and cold. Dr. Dai re-dressed the fasciotomy site with sterile gauze and humphrey wrap, still oozing blood. Will transfuse 2x u PRBCs.
Original Note:
Update Note
Progress Note Update
Called and updated Dr. Dai, vascular surgeon, no pulses in pedal or post tibial, lower extremity cold and dusky (despite attempt with warming leg with warm blankets). Continues with levophed gtt for hypotension. Dr. Dai will call the OR team
in and take the patient back to the OR.
[2024-04-04 21:12] LABS: Blood Urea Nitrogen 24 mg/dl (9-20); Calcium 7.9 mg/dl (8.4-10.2); Carbon Dioxide 17 mmol/L (22-30); Chloride 107 mmol/L (98-107); Estimated Creatinine Clearance 63 ml/min; Glucose 217 mg/dl (70-99); Magnesium 1.9 mg/dl (1.6-2.3); Phosphorus 4.3 mg/dl (2.5-4.5); Potassium 4.4 mmol/L (3.5-5.1); Sodium 134 mmol/L (135-145); eGFR > 60.00
--- NOTE | 2024-04-04 21:30 | PTCARENOTE ---
Pt received change of shift from PACU. In PACU - dressing on L fasciotomy site redressed. On initial transfer to ICU ~1999, PT pulse w/ doppler. DP pulse absent. Foot dusky in color. Pt reports better feeling in L foot than prior to surgery, but not
fully back. Around 2029, rechecked pulses - PT and DP absent. Attempted warming w/ blankets, no improvement. STERILIZER OPERATOR Farhana Lawson aware and Dr. Dai notified.
[2024-04-04] MEDS: NSS 1000 IV (21:42)
[2024-04-04] MEDS: DILAUDID 1 MG IV (22:19)
--- NOTE | 2024-04-04 22:21 | W.PN.UPDATE ---
Update Note
Progress Note Update
Called re: loss of DP signal with cold mottled foot following LLE revasc for thrombosed pop aneurysm
O/E patient's toes are cyanotic with decreased sensation. He is motor intact. I cannot locate a DP signal, but AT signal above cutdown is present. Fasciotomies oozing.
Patient had had return of sensation to toes postop, but it is now decreased
Currently his bypass is patent with flow into his AT. I suspect he has distal thrombosis of his small vessels.
I discussed the patient's operation with Dr. Terrazas, who indicated he performed DP embolectomy and instilled TPA into the foot in addition to bypass.
I do not feel any further operative intervention is indicated or would change the course of events.
I did explain to his daughters, who were at the bedside, that I worry his poor outflow may not be enough to sustain patency of the bypass.
For now, we will continue warming, heparin gtt, and close monitoring.
The patient and family understand he remains at high risk of limb loss.
--- NOTE | 2024-04-04 23:00 | PTCARENOTE ---
Dr Dai at bedside. L fasciotomy site redressed. Updated pt and family on plan of care. 2u PRBC ordered, consent obtained.
[2024-04-05] VITALS (47 sets, daily range): BP systolic 58–171; BP diastolic 14–138; BMI 27.8
[2024-04-05] MEDS: TYLENOL 650 MG PO (01:37)
[2024-04-05] MEDS: DILAUDID 1 MG IV ×4 (02:19→21:20)
[2024-04-05] MEDS: PITRESSIN 100 IV ×2 (02:28→12:13)
[2024-04-05 02:36] LABS: APTT > 200 Sec (23.4-35.0)
[2024-04-05] MEDS: LEVOPHED 250 IV ×8 (02:36→17:51)
[2024-04-05 03:37] LABS: Hematocrit 32.8 % (39.0-52.0); Hemoglobin 10.9 g/dL (13.0-18.0)
[2024-04-05] MEDS: HEPARIN 25000 UNITS/250 ML IV (03:39)
[2024-04-05 05:25] LABS: Ionized Calcium 0.96 mMOL/L (1.15-1.33)
--- NOTE | 2024-04-05 05:42 | PTCARENOTE ---
Levo 30mcg/min, vasopressin infusing as ordered, Heparin infusing at 1300u/hr, NSS 150mL/hr. Pt w/ episode of nausea w/ relief after episode of incontinence. BM soft, brown. L foot cyanotic, cool. L DP and PT still not present. Pulse on anterior
lower leg above access site present. Feeling in L foot remains minimal if at all
[2024-04-05 05:57] LABS: Hematocrit 32.8 % (39.0-52.0); Hemoglobin 10.5 g/dL (13.0-18.0); Mean Corpuscular Hgb 27.3 pg (27.0-31.0); Mean Corpuscular Volume 85.2 fL (80.0-94.0); Mean Platelet Volume 10.9 fL (7.4-10.4); Platelet Count 192 10^3/uL (130-400); Red Blood Cell Count 3.85 10^6/uL (4.70-6.10); Red Cell Dist. Width 17.1 % (11.5-14.5); White Blood Cell Count 27.2 10^3/uL (4.8-10.8)
[2024-04-05 06:08] LABS: Blood Urea Nitrogen 30 mg/dl (9-20); Calcium 7.8 mg/dl (8.4-10.2); Carbon Dioxide 11 mmol/L (22-30); Chloride 107 mmol/L (98-107); Estimated Creatinine Clearance 30 ml/min; Glucose 310 mg/dl (70-99); Magnesium 2.1 mg/dl (1.6-2.3); Phosphorus 8.2 mg/dl (2.5-4.5); Potassium 5.4 mmol/L (3.5-5.1); Sodium 135 mmol/L (135-145); eGFR 31.63
[2024-04-05 07:02] LABS: % Basophils 0.2 % (0-2); % Immature Granulocytes 1.3 % (0-0.5); % Lymphocytes 10.6 % (20.5-51.1); % Monocytes 11.6 % (1.7-9.3); % Neutrophils 76.3 % (42.2-75.2); Absolute Basophils 0.1 10^3/uL (0-0.2); Absolute Immature Granulocytes 0.3 10^3/uL (0-0.05); Absolute Lymphocytes 2.9 10^3/uL (1.2-3.4); Absolute Monocytes 3.2 10^3/uL (0.1-0.6); Absolute Neutrophils 20.7 10^3/uL (1.4-6.5); Nucleated Red Blood Cells % 0 % (-)
[2024-04-05] MEDS: NSS 1000 IV (07:28)
[2024-04-05] MEDS: NSS IV (08:07)
--- NOTE | 2024-04-05 08:19 | W.PN.INTV ---
Today's Communication / Plan
Recommendations
Vasopressors with goal SBP >90
If possible, keep MAP >65�70 to help perfuse kidneys
Trend UOP and sCr as he is heading towards hemodialysis
PICC inserted today for IV access
Trend lactate until <2 mmol/L
Wean down supplemental oxygen while maintaining SpO2 >90-94%
Defer LLE surgical options to vascular surgery as he is likely going to need a left AKA
Pain control
Continue ICU level care for this critically ill patient
Assessment
-
78-year-old man with past medical history noted. Admitted with acute leg pain. Found to have acute limb ischemia of the left lower extremity. Underwent thromboembolectomy on 04/04/2024. Subsequently transferred to the critical care unit for
further care
Impression:
Acute left lower extremity limb ischemia with thrombosed left popliteal artery aneurysm s/p thromboembolectomy with left BSW to below�knee popliteal artery bypass and thrombectomy of AT artery and DP artery via separate ankle incision (POD #1)
Shock: Likely hemorrhagic from operative site in addition to vasoplegia from metabolic acidosis
Elevated CPK with differential including postoperative sequela versus muscle injury from severe PAD of left lower extremity with ischemia
Hyperglycemia (HbA1c: 5.5 on 04/05/2024)
CONI
Lactic acidosis
Severe metabolic acidosis with increased anion gap due to CONI + lactic acidosis
Acute anemia
Leukocytosis
Moderate�severe concentric LVH (seen on TTE from 04/05/2024)
Conditions present prior admission:
Coronary artery disease status post PCI 2004
Hypertension
Bilateral popliteal artery aneurysms
History of hernia repair
Status post AAA repair-2021 [facility]
Active smoker half a pack per day for 50 years-ongoing
Assessment and plan:
Postoperative surgical intensive care unit monitoring
Continue with supplemental oxygen to maintain SpO2 >90-94%
Duonebs prn
Incentive spirometry encouraged q1hr while awake
Aspiration precautions
Neuro and vascular checks per protocol
Heparin drip will continue-follow PTT. Per vascular surgery.
Need to transfuse blood products to keep Hb >7, platelet count >50k (given postoperative status)
Vascular surgery following-correspondence and operative notes reviewed
Continue with vasopressors, currently on Levophed + vasopressin
Replete calcium as needed
Maintain SBP >90; may be difficult to keep MAP >65 given his low diastolic blood pressure which resembles the severity of his PAD
Given his high vasopressor requirements, keep NPO except for meds
Currently on IVF with bicarb drip
Trend sHCO3 and blood gas, keeping pH>7.25
Echo done today shows moderate�severe concentric LVH with sinus of Valsalva 4.5 cm with normal biventricular function and no wall motion abnormalities (LVEF: 55%)
Continue to trend lactate until <2 mmol/L
A-line placed
Continue to trend sCr and UOP
Nephrology consulted and recommendations appreciated --> he is heading towards hemodialysis which will likely be CRRT given his significant shock state
Serial BMP to assure [K] is <5.5
Treat hyperkalemia with temporizing measures
Follow ELIZABETH drain output from LLE postoperative site (bloody output currently)
Pain control
Insulin drip to be started today to help with wound healing given he remains hyperglycemic
q1-2hr fingersticks while on insulin drip
Avoid hypoglycemia
Goal BG 140�180
Tobacco abuse 15-ttxm-sdes history
Start nicotine patch
Currently does not qualify for lung cancer screening.
Will benefit from pulmonary evaluation at some point if patient desires --> this can be discussed as an outpatient if patient survives hospitalization
DVT prophylaxis-on heparin drip
IV access: Will obtain PICC line today
Patient's daughter understands how critically ill her father is. She would like him to remain full code for now with full medical management. The patient also can make decisions for himself given he is currently AAOx3.
Continue ICU level care for this critically ill patient
Critical care statement: A total of 40 minutes of critical care time was provided for this patient today. This includes management of unstable vital signs, evaluation of the patient at bedside, reviewing the patient's pertinent medical records
including radiographs, microbiology, laboratory evaluations, and discussion with primary team, consultants, pharmacy, nutrition, physical therapy, case management, charge nurse, critical care nursing, and respiratory therapy.
Subjective Dataa
Subjective Data
Date of Service:
Date of Service: April 05, 2024
Chief Complaint: Tray Checker Follow Up
Subjective:
Patient was seen and evaluated today bedside. Loss of left DP/PT, weak distal AT by doppler. He has pain in his LLE. Plan for Left AKA. Bleeding from the operative site. Remains on heparin gtt; received 0.5L IVF bolus and got 2 U PRBC
overnight, and getting 3rd unit PRBC now. On levo at 30mcg/min and vaso at 0.03 units/min. BP 114/73 and HR 102. Making very little urine - <5cc since this AM. Glucose 310 this AM, on insulin gtt. Still smoking <1/2 PPD. Currently on insulin
drip at 3 units/hr. I spoke to the daughter during rounds and answered all of her questions. Patient remains awake, alert and in no acute distress, currently on 4 L/min nasal cannula saturating 96%.
Review of Systems
General: Other (Negative unless mentioned above)
Objective Data
Data Reviewed
Vital Signs / I&O / Oxygen:
Vital Signs
Temp Pulse Resp BP Pulse Ox
98.4 F 103 33 118/74 96
04/05/24 09:53 04/05/24 09:53 04/05/24 09:53 04/05/24 09:53 04/05/24 09:35
Intake and Output
04/04/24 04/05/24 04/06/24
06:59 06:59 06:59
Intake Total 2826 / 3111 1205 / 1205
Output Total 1110 / 1110 194 / 194
Balance 1715 / 2000 1011 / 1011
SaO2 96
Nasal Cannula flow liters per 3
minute
Physical Exam
General: Respiratory Distress (negative), Pain (Left lower extremity from knee down) and Chills (negative)
HEENT: Normocephalic and Anicteric
Cardiovascular: S1-S2 and Peripheral Edema (negative)
Respiratory: Wheeze (negative), Crackles (negative), Rhonchi (negative) and Non-Labored Respirations
GI: Soft, Non Distended, Non Tender and Normal Bowel Sounds
Neurology: AO x 3 and Tremors (negative)
Skin: Dry and Cyanosis (Left lower extremity)
Labs/Micro/Reports
Lab Data
04/05/24 05:11
Laboratory Results
04/04/24 04/04/24 04/05/24
10:56 17:25 02:04
PT 14.7 H 17.3 H
INR 1.10 1.36
APTT 27.8 > 200 H* > 200 H*
[2024-04-05] MEDS: NSS 500 IV (08:25)
[2024-04-05 08:41] LABS: Glucose - Point of Care 245 mg/dl (70-99)
--- NOTE | 2024-04-05 09:06 | PTCARENOTE ---
Rec'd from night RN in report 07:15. Vascular team in room , plan discussed, orders rec'd for bolus IVF, another unit PRBCs, will plan for likely OR for AKA. Emotional support provided. See flowsheet for meds and assessment.
--- NOTE | 2024-04-05 09:10 | W.PN.VS ---
Addendum entered and electronically signed by Rob Terrazas III, MD 04/05/24 11:30:
This patient was seen and examined in collaboration with LORRIE Rinaldi. I agree with the history and physical exam as well as the assessment and plan. I have the following additions:
Critically ill on 2 pressors
Continues with bleeding from JPs and fasciotomy sites
No hematoma accumulation
Has a distal anterior tibial artery signal but no signal in the dorsalis pedis on the dorsum of the foot or the posterior tibial
Foot is discolored
Has limited motor function of the toes and ankle
Would like to wean vasopressin if possible to keep MAP goal greater than equal to 65
Central line to assess volume status and continue administration of hemodynamic medications
Echocardiogram
Transfuse
Continue with IV fluid resuscitation
Renal consult
I updated patient and his daughter
Once again explained that the risk of limb loss is high in this case
Signed:
Rob Terrazas III, MD
[facility]
[phone] ([id number])
Original Note:
Today's Communication / Plan
-
Seen and assessed with Dr Terrazas
Assessment/Plan
-
POD 1 Thromboembolectomy of below the knee popliteal artery and tibial arteries via below-knee popliteal artery exposure
Left common femoral artery to below-knee popliteal artery bypass with 8 mm ring-reinforced PTFE graft
Thrombectomy of anterior tibial artery and dorsalis pedis artery via separate ankle incision
Plan:
-1L bolus
-Echo
-Wean off vasopressin as able
-GOAL MAPS >65
-Nephrology consult, decreased UO and creat rising
-1 unit PRBC
-Labs
-Cont heparin gtt for now, pending PTT this am
Subjective Data
-
Date of Service: April 05, 2024
Pt seen at bedside this am with Dr Terrazas. Pt denies complaints at this time. Pale-appearing. On Levophed and Vasopressin. Loss of pulses overnight, foot remains cool, dusky. +Doppler AT. Heparin gtt running.
Objective Data
-
Vital Signs
Temp Pulse Resp BP Pulse Ox
97.5 F 94 26 100/60 97
04/05/24 03:42 04/05/24 09:00 04/05/24 09:00 04/05/24 03:21 04/05/24 04:30
Intake and Output
04/04/24 04/05/24 04/06/24
06:59 06:59 06:59
Intake Total 2826 / 3111 1205 / 1205
Output Total 1110 / 1110 194 / 194
Balance 171 / 2000 1011 / 1011
Intake:
IV fluids (Total) 1826 / 2111 1205 / 1205
Levo 665 / 778 339 / 339
NSS @ 150mL/hr 1050 / 1200 800 / 800
Vaso 27 / 36 27 / 27
heparin 84 / 97 39 / 39
Blood Products 500 / 500
Packed red blood cells 500 / 500
Blood Product Amount Infused ( 500 / 500
mL)
Packed Rbc Leukoreduced Unit 250 / 250
[id number]
Packed Rbc Leukoreduced Unit 250 / 250
[id number]
Output:
Drain Output (Total) 425 / 425 190 / 190
Left Lower Leg Stephane-Landrum 50 / 50
Left Lower Neck Stephane-Landrum 85 / 85
Left Upper Leg Stephane-Landrum 290 / 290 190 / 190
Mk Padron 188 / 685 4
Lab Results
04/05/24 05:11
Calcium 7.8 mg/dl (8.4-10.2) L 04/05/24 05:11
Phosphorus 8.2 mg/dl (2.5-4.5) H 04/05/24 05:11
Magnesium 2.1 mg/dl (1.6-2.3) 04/05/24 05:11
Physical Exam
-
AAOx3
No tachypnea 2L NC
Mild tachycardia 106
Abd soft, NT
R foot warm, palp pulse
L foot cool, dusky, +doppler AT
Leg redressed at bedside, scant bloody drainage noted. Lower leg is moderately swollen but soft, groin soft, flat
ELIZABETH A (upper) 400cc over 12hrs
ELIZABETH B (lower) 40cc
[2024-04-05 09:28] LABS: Hematocrit 28.7 % (39.0-52.0); Hemoglobin 9.4 g/dL (13.0-18.0)
--- NOTE | 2024-04-05 09:49 | PTCARENOTE ---
PRBCs hung at approx 09:30. Pt tolerating well, no s/s/ tx reaction.
[2024-04-05 09:51] LABS: Lactic Acid 7.3 mmol/L (0.7-2.0)
[2024-04-05 10:03] LABS: Glycohemoglobin (HgbA1c) 5.5 % (4.0-5.6)
[2024-04-05] MEDS: NOVOLIN R 4 UNITS IV (10:12)
[2024-04-05 10:14] LABS: Glucose - Point of Care 242 mg/dl (70-99)
[2024-04-05] MEDS: NOVOLIN R INSULIN INFUSION 100 IV ×2 (10:23→18:39)
[2024-04-05 10:39] LABS: INR 1.58; PT 19.3 Sec (11.4-14.6)
[2024-04-05 11:02] LABS: APTT > 200 Sec (23.4-35.0)
[2024-04-05 11:04] LABS: APTT > 200 Sec (23.4-35.0)
--- NOTE | 2024-04-05 11:10 | CM ---
CM following re: discharge planning.
Discussed in Rounds, reviewed pt's chart, met with pt and daughter Aida at bedside.
Pt is 78 year old male, admitted with primary dx of POD 1 Thromboembolectomy of below the knee popliteal artery and tibial arteries via below-knee popliteal artery exposure. Pt's daughter participates in rounds meeting, deeply aware of pt's current
health situation and prognosis.
Per daughter, pt lives alone 2SH, 2 steps to enter, has 3 supportive daughters. Per daughter, pt was independent in all areas [employer]IL[employer]. No DME, VN or SNF services. Pt's daughter described the pt as a 'strong man'.
PCP: Que Broussard
pharmacy: [facility]
D/C plan: uncertain at this time and will de[end on pt's progress.
CM will follow with discharge plan updates as hospitalization progresses
--- NOTE | 2024-04-05 11:19 | CARDSERVLU ---
Echocardiogram with Lumason completed after protocol screening completed. Allergies verified.
Patent IV site: ___Rt FA__
IV site flushed with 0.9% NaCl pre and post administration.
Diluted bolus method utilized to enhance visualization of ventricular hassan.
Total volume given: __1.5__ mL
Patient tolerated all procedures well without complications.
[2024-04-05 11:41] LABS: Glucose - Point of Care 247 mg/dl (70-99)
[2024-04-05 12:10] LABS: B.E. -13.8 mmol/L; O2 Saturation % 99.1 % (94-98); PCO2 26 mmHg (35-48); PO2 95 mmHg (83-108); pH 7.26 (7.35-7.45)
[2024-04-05 12:12] LABS: HCO3 11.7 mmol/L (21-28)
[2024-04-05 12:46] LABS: Glucose - Point of Care 235 mg/dl (70-99)
[2024-04-05 13:03] LABS: AST (SGOT) 163 U/L (17-59); Albumin 2.7 g/dl (3.5-5.0); Alkaline Phosphatase 59 U/L (38-126); Blood Urea Nitrogen 33 mg/dl (9-20); Calcium 7.4 mg/dl (8.4-10.2); Carbon Dioxide 11 mmol/L (22-30); Chloride 106 mmol/L (98-107); Direct Bilirubin 0.1 mg/dl (0.0-0.4); Estimated Creatinine Clearance 21 ml/min; Glucose 279 mg/dl (70-99); Magnesium 2.1 mg/dl (1.6-2.3); Phosphorus 7.8 mg/dl (2.5-4.5); Potassium 4.9 mmol/L (3.5-5.1); Sodium 132 mmol/L (135-145); Total Protein 4.7 g/dl (6.3-8.2); eGFR 20.61
[2024-04-05] MEDS: CALCIUM GLUCONATE 100 IV (13:07)
[2024-04-05 13:13] LABS: ALT (SGPT) 59 U/L (0-50)
[2024-04-05 13:45] LABS: Glucose - Point of Care 205 mg/dl (70-99)
[2024-04-05] MEDS: SODIUM BICARBONATE 1150 MEQ IV (13:45)
--- NOTE | 2024-04-05 13:49 | PTCARENOTE ---
Levo weaned to 28 mcg/kg/min approx 13:00 ...see flowsheet.
[2024-04-05 14:07] LABS: Hematocrit 29.6 % (39.0-52.0); Hematocrit 30.6 % (39.0-52.0); Hemoglobin 10.1 g/dL (13.0-18.0); Hemoglobin 9.9 g/dL (13.0-18.0); Mean Corpuscular Hgb 28.1 pg (27.0-31.0); Mean Corpuscular Volume 85.2 fL (80.0-94.0); Mean Platelet Volume 10.8 fL (7.4-10.4); Platelet Count 171 10^3/uL (130-400); Red Blood Cell Count 3.59 10^6/uL (4.70-6.10); White Blood Cell Count 22.3 10^3/uL (4.8-10.8)
--- NOTE | 2024-04-05 14:19 | W.CON.NEPH ---
Consultation
-
Date/Time Consultation Requested: 04/05/2024 12 PM
Date/Time Consultation Performed: 04/05/2024 12 PM
Requesting Provider: Dr. Terrazas
Performing Provider: Dr. Patel
Reason for Consultation: CONI
Medical History
-
Chief Complaint: Leg pain
History of Present Illness:
This is a 78-year-old gentleman who has significant arterial disease with coronary disease with stenting as well as abdominal aortic aneurysm with endovascular repair also has severe pulm arterial disease with bilateral popliteal artery aneurysms.
His hypertension is treated with a multidrug regimen has hyperlipidemia treated with statin therapy both of which have been otherwise fairly stable. He has had no known CKD with baseline creatinine 1.0. He was admitted because of acute limb
threatening ischemia on the left side. He developed motor deficits as well as no tactile sensation. He was taken to CT angiogram which showed thrombosis of the left superficial femoral artery and popliteal artery. He was then taken to the
vascular OR and underwent left [employer] below the knee popliteal artery bypass with thrombectomy of the popliteal artery and the anterior tibial artery. Unfortunately he remains with poor distal flow to his foot on the left side. He is also hypotensive
and critically ill in the ICU on pressors. He has systemic inflammatory response at this time. His lactic acid level is elevated. His urine output has diminished significantly. His creatinine has jumped from 1-2.1. We are asked to assist with
management.
Past Medical History
Coronary disease with PCI, hypertension, hyperlipidemia, bilateral popliteal artery aneurysms, left [employer] popliteal artery bypass, thrombectomy popliteal artery anterior tibial artery on the left, hernia repair, endovascular abdominal aortic angio
repair
Social History
Tobacco: Smoker
Alcohol: None
Family History
Family History: Not Pertinent
Allergies / Home Medications
Allergy/AdvReac Type Severity Reaction Status Date / Time
No Known Allergies Allergy Verified 04/04/24 10:43
�Medication �Instructions �Recorded �Confirmed �Type
aspirin 81 mg tablet,delayed 81 mg PO DAILY Blood Clot 03/18/22 04/04/24 History
release Prevention/Tx
enalapril maleate 20 mg tablet 20 mg PO DAILY Blood Pressure 03/18/22 04/04/24 History
(Vasotec)
metoprolol tartrate 50 mg tablet 50 mg PO BID Heart 03/18/22 04/04/24 History
(Lopressor) Disease/Condition
multivitamin 1 tab PO DAILY Supplement 03/18/22 04/04/24 History
pravastatin 40 mg tablet 40 mg PO QPM High Cholesterol 03/18/22 04/04/24 History
Review of Systems
-
Pain in the lower legs
All other systems: Negative unless noted
Physical Exam
Vital Signs
Vital Signs
Temp Pulse Resp BP Pulse Ox
98.4 F 106 33 92/55 96
04/05/24 12:12 04/05/24 14:00 04/05/24 14:00 04/05/24 12:03 04/05/24 09:35
Lab Results
eGFR 20.61 04/05/24 11:53
Albumin 2.7 g/dl (3.5-5.0) L 04/05/24 11:53
Laboratory Tests
04/04/24 04/05/24 04/05/24
20:41 05:11 09:17
Sodium
Potassium
Carbon Dioxide
BUN
Creatinine 1.0 2.1 H
Lactic Acid 7.3 H*
Calcium
Phosphorus
04/05/24
11:53
Sodium 132 L
Potassium 4.9
Carbon Dioxide 11 L*
BUN 33 H
Creatinine 3.0 H
Lactic Acid
Calcium 7.4 L
Phosphorus 7.8 H
Physical Exam
Patient is awake alert oriented and in no distress. Mood and affect were pleasant, insight and judgment were good. Pupils are equal round and reactive to light, extraocular movements are intact, sclera were anicteric. Hearing was normal, ears and
nose are intact. Oropharynx was clear. Neck was supple with trachea midline and no thyromegaly. Heart was regular rate and rhythm without rubs. Lower extremities with2+ edema. Lungs were clear to auscultation bilaterally and with normal excursion.
Abdomen was soft, nontender, with normal active bowel sounds, and no hepatosplenomegaly. Skin was without rash and with normal turgor. There is duskiness to digits of both feet
Data Reviewed
-
Radiology: Image Personally Visualized and interpreted (Chest x-ray 04/04/2024 by my reading no acute disease)
Medical Tests (Nuc Med, Echo etc): Image Personally Visualized and interpreted (EKG 04/05/2024 by my reading shows sinus rhythm) and Report Reviewed by me (Echo 04/05/2024 ejection fraction 55%, concentric LVH, no valvular heart disease)
Labs: Labs Reviewed by me
Old Records: Reviewed
Assessment/Plan
-
Assessment
Hypotension
Ischemic left foot
Status post left leg thrombectomy, [employer] bypass
Lactic acidosis
CONI
CAD
Plan
I had a long discussion with the daughter as well as the patient regarding the acute kidney injury. This is likely due to contrast exposure, hypotension, SIRS
There is a very good chance that he will have acute kidney failure requiring dialysis.
They have come to the agreement that amputation will be the best chance of limiting kidney injury
Keep mean arterial pressure greater than 65
Replace calcium
IV fluids with bicarbonate therapy
Serial BMP and lactic acid levels
Critical care time 31 minutes
--- NOTE | 2024-04-05 14:31 | PN.DE.MGMTRT ---
Insulin Management
- -
04/05/2024 Diabetes Management Consult
Patient admitted 04/04 with painful, cold, numb L leg. PMH, AAA repaired 2021, HTN, HCL, CAD with PCI 2004, anemia, COPD, bilateral popliteal artery aneurysms.
Prior to admission patient was taking no diabetes medications, A1C 5.5%, cr 2.1, eGFR 31.62.
Patient is awake alert and oriented resting in bed, daughter at bedside, very supportive. Reassured patient he does not have diabetes, elevated glucose most likely stress related.
POD 1 Thromboembolectomy of below the knee popliteal artery and tibial arteries via below-knee popliteal artery exposure Left common femoral artery to below-knee popliteal artery bypass with 8 mm ring-reinforced PTFE graft Thrombectomy of anterior
tibial artery and dorsalis pedis artery via separate ankle incision.
Glucose on admission 210, this AM 310, glycemic protocol insulin infusion started. Patient requiring 3 to 4 units of insulin per hour. Will continue insulin infusion today and assess in AM for readiness to transition.
Discussed with nurse at bedside.
Diabetes History
- -
Pre-Admission Diabetes Regimen
04/04/24 04/04/24 04/05/24
17:25 20:41 05:11
Creatinine 0.9 1.0 2.1 H
04/05/24
11:53
Creatinine 3.0 H
Lab Results
Hemoglobin A1c 5.5 % (4.0-5.6) 04/05/24 05:11
Insulin Pump Settings
IP Diabetes Regimen
04/04/24 04/04/24 04/05/24
17:25 20:41 05:11
Glucose 184 H 217 H 310 H
POC Glucose
04/05/24 04/05/24 04/05/24
08:30 10:02 11:29
Glucose
POC Glucose 245 H 242 H 247 H
04/05/24 04/05/24 04/05/24
11:53 12:35 13:35
Glucose 279 H
POC Glucose 235 H 205 H
Patient Education
[2024-04-05 14:36] LABS: Glucose - Point of Care 230 mg/dl (70-99)
[2024-04-05] MEDS: NICODERM TRANSDERMAL 7 MG TRANSDERM (15:09)
[2024-04-05] MEDS: ZOFRAN 4 MG IV (15:20)
[2024-04-05 15:22] LABS: Lactic Acid 10.3 mmol/L (0.7-2.0)
[2024-04-05 15:29] LABS: Glucose - Point of Care 220 mg/dl (70-99)
--- NOTE | 2024-04-05 16:42 | W.PN.HOSP.TC ---
Today's Communication/Plan
-
Assessment / Plan
Assessment / Plan
Gen-AAOx3, NAD
HEENT-NC, AT, anicteric, clear oral mm
Neck-supple
CV-reg, no M, +S1/S2
Lungs-clear B/L
Abd-soft, NT, ND
Musculoskeletal-no edema, left lower extremity with wound dressings in place and 2 drains with sanguinous output
Skin-warm and dry
Neuro-grossly non-focal
Psych-calm, cooperative
Mr. Hunt is a 78-year-old male with a medical history of hypertension, CAD (status post PCI 2004), bilateral popliteal artery aneurysms, AAA (status post repair at [facility] and 08/2021), longtime smoker (half pack per day x 50 years current smoker), and
hernia repair who presents from home with acute onset left leg pain and coldness. In the ED, he was found to be mildly hypertensive with initial BP of 184/97. Labs were remarkable for leukocytosis of 13.5, hemoglobin 12.4, and a glucose of 203. He
was immediately started on IV heparin drip and evaluated by vascular surgery team. He has been admitted pending OR with vascular surgery for intervention on his left lower extremity for apparent acute limb ischemia.
Acute limb ischemia:
-Status post thrombectomy and femoropopliteal bypass 04/04, drains in place with sanguinous output
-Remains on IV heparin drip
-Required transfusion 2 units PRBCs overnight and is being transfused another unit this morning due to perioperative blood loss
-Critically ill requiring 2 vasopressors
-Pain control as needed
-Further recommendations per vascular surgery, may require amputation
Shock:
-Suspect hemorrhagic secondary to perioperative blood loss
-Transfused a total of 3 units PRBCs so far
-Lactic acid continues to rise
-Continue vasopressors as needed, currently on Levophed and vasopressin
-Echocardiogram shows preserved ejection fraction
Acute renal failure:
-Suspect secondary to shock and contrast mediated during intravascular procedure for acute limb ischemia
-Continue vasopressors as needed to maintain maps above 65
-Appreciate nephrology recommendation
Hypertension:
-Holding antihypertensives due to current treatment for shock
CAD:
-Stable, status post PCI with stents 2004
-Continue low-dose aspirin and high intensity statin
-Holding beta-rosalba due to shock
Tobacco abuse:
-Longtime current smoker, half pack per day x 50 years
-Encouraged cessation, nicotine patch provided
CODE STATUS: Full code
Anticipated Discharge: > 48 hours
Subjective/Interval History
-
Date of Service: April 05, 2024
Patient was seen and examined at bedside this morning. Underwent left lower extremity thrombectomy yesterday and femoropopliteal bypass. Still with cyanotic appearing toes with decreased sensation. Has [address] with sanguinous output.
Being transfused 1/3 unit of blood this morning, was transfused 2 units overnight postoperatively due to oozing from surgical site. Remains on 2 pressors.
Objective Data
-
Labs:
Laboratory Results
04/05/24 04/05/24 04/05/24
05:11 09:17 09:17
WBC 27.2 H
Hgb 10.5 L 9.4 L
Hct 32.8 L 28.7 L
Plt Count 192
PT 19.3 H
INR 1.58
APTT > 200 H* > 200 H*
HCO3
Sodium 135
Potassium 5.4 H
Chloride 107
Carbon Dioxide 11 L*
BUN 30 H
Creatinine 2.1 H
Glucose 310 H
Calcium 7.8 L
Total Bilirubin
AST
ALT
Alkaline Phosphatase
04/05/24 04/05/24 04/05/24
11:53 13:57 13:57
WBC 22.3 H
Hgb 9.9 L 10.1 L
Hct 29.6 L
Plt Count
PT
INR
APTT
HCO3 11.7 L*
Sodium 132 L
Potassium 4.9
Chloride 106
Carbon Dioxide 11 L*
BUN 33 H
Creatinine 3.0 H
Glucose 279 H
Calcium 7.4 L
Total Bilirubin 1.0
AST 163 H
ALT 59 H
Alkaline Phosphatase 59
04/05/24 04/05/24 04/05/24
13:57 16:16 17:00
WBC Pending
Hgb Pending
Hct 30.6 L Pending
Plt Count 171 Pending
PT
INR
APTT
HCO3
Sodium Pending
Potassium Pending
Chloride Pending
Carbon Dioxide Pending
BUN Pending
Creatinine Pending
Glucose Pending
Calcium Pending
Total Bilirubin
AST
ALT
Alkaline Phosphatase
04/05/24 04/05/24 04/05/24
19:30 22:16 23:00
WBC Pending
Hgb Pending
Hct Pending
Plt Count Pending
PT
INR
APTT Pending
HCO3
Sodium Pending
Potassium Pending
Chloride Pending
Carbon Dioxide Pending
BUN Pending
Creatinine Pending
Glucose Pending
Calcium Pending
Total Bilirubin
AST
ALT
Alkaline Phosphatase
Vital Signs:
Vital Signs
Temp Pulse Resp BP Pulse Ox
97.7 F 107 32 92/55 96
04/05/24 16:00 04/05/24 15:45 04/05/24 15:45 04/05/24 12:03 04/05/24 09:35
I&O
04/04/24 04/05/24 04/06/24
06:59 06:59 06:59
Intake Total 2826 / 3111 3231.0 / 3231.0
Output Total 1109 / 1110 540 / 540
Balance 1715 2691.0 / 2691.0
Review of Systems
-
History Source: Patient
All other systems: Reviewed and negative
Musculoskeletal: Reports Other (Left foot numbness, left leg pain at surgical sites)
Physical Exam
-
General: No Apparent Distress
--- NOTE | 2024-04-05 16:54 | PTCARENOTE ---
Cecilia no longer correlating with cuff pressure, trouble shooted, and rezeroed-per educational fundraising director, ok to use [place] for blood draws only and use cuff pressure for vital signs. Pt and daughter also updated.
[2024-04-05 17:04] LABS: Glucose - Point of Care 132 mg/dl (70-99)
[2024-04-05 17:09] LABS: Hematocrit 27.4 % (39.0-52.0); Hemoglobin 9.2 g/dL (13.0-18.0); Mean Corp Hgb Conc. 33.6 g/dL (33.0-37.0); Mean Corpuscular Hgb 28.2 pg (27.0-31.0); Mean Platelet Volume 11.4 fL (7.4-10.4); Platelet Count 157 10^3/uL (130-400); Red Blood Cell Count 3.26 10^6/uL (4.70-6.10); White Blood Cell Count 25.3 10^3/uL (4.8-10.8)
[2024-04-05 17:41] LABS: Blood Urea Nitrogen 36 mg/dl (9-20); Calcium 7.9 mg/dl (8.4-10.2); Carbon Dioxide 11 mmol/L (22-30); Chloride 106 mmol/L (98-107); Estimated Creatinine Clearance 18 ml/min; Glucose 132 mg/dl (70-99); Magnesium 2.1 mg/dl (1.6-2.3); Potassium 3.9 mmol/L (3.5-5.1); Sodium 136 mmol/L (135-145); eGFR 17.13
[2024-04-05 17:43] LABS: Glucose - Point of Care 119 mg/dl (70-99)
[2024-04-05 18:15] LABS: Creatine Phosphokinase 5014 U/L (55-170)
--- NOTE | 2024-04-05 18:32 | PTCARENOTE ---
Art line maintained for blood draws..cuff pressures documented for vital signs. Discussed with occupational ther.
Please disregard A line MAP readings from 16:00 to 18:30
[2024-04-05 18:36] LABS: Glucose - Point of Care 114 mg/dl (70-99)
[2024-04-05 19:43] LABS: Glucose - Point of Care 78 mg/dl (70-99)
[2024-04-05 20:02] LABS: Hematocrit 26.9 % (39.0-52.0); Hemoglobin 9.3 g/dL (13.0-18.0)
--- NOTE | 2024-04-05 20:04 | W.PN.UPDATE ---
Update Note
Progress Note Update
2134 Notified by bedside nurse that patient is having acute abdominal pain. Stat abdominal xray, chest X-ray and labs�ordered. �Evaluated patient at bedside. �Patients was diaphoretic,�decrease mental state, and in respiratory distress. 2214
Hemodynamics declining decision made to intubate. Patient intubated. �Labs resulted prior to intubation: ABG 7.06/39/156/11.7/99.1 and lactic acid 10.8. �Post intubation hemodynamics continued to decline. Patient started on EPI drip and Khadar drip.
[address] Sparks patient�s xray showing free air in the abdomen. �2234 Despite interventions pressures dropped to 20 /10. ACLS initiated and patient received one round of CPR�with one amp of EPI and sodium bicarb given. ROSC was
achieved. �Dr Alston updated and asked to contact general surgery about free air. General surgery reviewed images and suspected a perforated viscous due to ischemia in the setting of profound septic shock. Their recommendation for going to the
OR is extremely high risk for morbidity and mortality and any operation would likely be medically futile. �Prognosis discussed with family and decision was made to make patient a DNR and not to proceed with the OR. �Family wanted to maintain patient
currently on 4 pressors and ventilator with the high likelihood that the patient will pass in the next several hours.
--- NOTE | 2024-04-05 20:30 | PTCARENOTE ---
Pt received start of shift, HR appears to be ST w/ PACs / afib on telemetry. EKG done to confirm rhythm change. DP and PT pulses in L foot absent. AT pulse present. Foot color severely dusky, becoming pale at the toes. No feeling in L foot. Arterial
line pressures not correlating with cuff. Zeroing and readjusting did not work. Levo 30mcg/min, vaso 0.03u. Pt stated that 'I don't think I'm going to make it through the night'. When asked to clarify why he felt this way, pt stated 'I just think
so'. Discussed w/ pt that he is full code status and what this entails, pt stated they still want these measures. Therapeutic speech utilized.
[2024-04-05 20:34] LABS: APTT > 200 Sec (23.4-35.0)
[2024-04-05 20:43] LABS: Glucose - Point of Care 108 mg/dl (70-99)
[2024-04-05] MEDS: LEVOPHED 258 MG IV (21:15)
[2024-04-05 21:51] LABS: Glucose - Point of Care 121 mg/dl (70-99)
[2024-04-05 22:07] LABS: Lactic Acid 10.8 mmol/L (0.7-2.0)
[2024-04-05 22:17] LABS: B.E. -18.2 mmol/L; Ionized Calcium 1.04 mMOL/L (1.15-1.33); PCO2 39 mmHg (35-48); PO2 156 mmHg (83-108); Potassium 5.2 mMOL/L (3.5-5.1); Sodium 132 mMOL/L (136-145)
[2024-04-05 22:18] LABS: pH 7.06 (7.35-7.45)
[2024-04-05 22:19] LABS: Blood Urea Nitrogen 37 mg/dl (9-20); Calcium 7.4 mg/dl (8.4-10.2); Carbon Dioxide 10 mmol/L (22-30); Chloride 103 mmol/L (98-107); Estimated Creatinine Clearance 17 ml/min; Glucose 150 mg/dl (70-99); Magnesium 2.1 mg/dl (1.6-2.3); Phosphorus 9.4 mg/dl (2.5-4.5); Potassium 4.7 mmol/L (3.5-5.1); Sodium 132 mmol/L (135-145); eGFR 15.52
[2024-04-05 22:20] LABS: Hemoglobin 8.7 g/dL (13.0-18.0); Mean Corp Hgb Conc. 33.5 g/dL (33.0-37.0); Mean Corpuscular Hgb 28.8 pg (27.0-31.0); Mean Corpuscular Volume 86.1 fL (80.0-94.0); Mean Platelet Volume 11.6 fL (7.4-10.4); Platelet Count 151 10^3/uL (130-400); Red Blood Cell Count 3.02 10^6/uL (4.70-6.10); Red Cell Dist. Width 17.1 % (11.5-14.5)
[2024-04-05 22:32] LABS: Creatine Phosphokinase 5340 U/L (55-170)
--- NOTE | 2024-04-05 22:40 | W.PN.ANESINT ---
Addendum entered and electronically signed by Tiffanie Neri CRNA 04/06/24 06:43:
correction: 12mg etomidate, 50mg rocuronium and 1 stick of phenylephrine (1mg)
Original Note:
Anesthesia Intubation Note
- Intubation Note
Intubation Note:
Diagnosis: respiratory failure
Blade: glidescope
Tube Size: 8.0 HiLo
Depth: 23cm at the lip
Side Taped: center
Drugs Used: 16mg etomidate, 50mg rocuronium
Grade View: 1
EtCO2 Present: color change present on ETCO2 detector
Atraumatic: atruamatic
Attempts: 1 attempt
Insertion Start and Stop Time: 1020 start 1025 end
SaO2 Pre: 40
SaO2 Post: unable to assess
Glidescope Used: yes
Other Airway Adjustments: none
Pre-Oxygenated: preoxygenated by respiratory therapy
Portable Chest X-Ray: ordered
RSI: no
Suctioned: no
Bilateral Breath Sounds Confirmed: bilateral breath sounds confirmed, no breath sounds over abdomen
Vent Settings:
Settings per _X__Attending Physician
Tiffanie Neri CRNA
[2024-04-05 23:04] LABS: B.E. -18.2 mmol/L; Ionized Calcium 1.32 mMOL/L (1.15-1.33); O2 Saturation % 98.4 % (94-98); PCO2 67 mmHg (35-48); PO2 222 mmHg (83-108); Potassium 4.5 mMOL/L (3.5-5.1)
[2024-04-05 23:06] LABS: HCO3 13.4 mmol/L (21-28); pH 6.91 (7.35-7.45)
--- NOTE | 2024-04-05 23:07 | W.PN.UPDATE ---
Update Note
Progress Note Update
Brief General Surgery Note
Paged at 1045PM RE: Free Air in a 78M with significant PAD/AAA here with cold LLE s/p POD#1 thrombectomy and FEM-BKPOP, reviewing the notes there was some discussion re: amputation. Was informed that he arrested for 3 minutes before ROSC. He has
been on 2 pressors for most of the day now on 4. Post-arrest imaging demonstrated significant free air not seen on previous imaging. I reviewed his recent images personally. I suspect he has a perforated viscus s/t ischemia in the setting of
profound septic shock. Given his age, comorbidities, multi-organ system failure and clinical instability he is at extremely high risk for morbidity and mortality and any operation would likely be medically futile. I discussed this with the
hospitalist who agrees and will talk with the family re: goals of care.
--- NOTE | 2024-04-05 23:30 | PTCARENOTE ---
PTT>200, contacted Dr. Terrazas according to order. Heparin gtt on hold 2 hours, decrease by 200 units on restart. Pt also c/o sudden onset abdominal pain, tender to palpation throughout. COMPONENT ENGINEER Clarence Mock aware, XR abdomen ordered. PRN pain
medication - see MAR. Pt increased workload of breathing, unable to obtain good pleth w/ pulsox on monitor. Handheld Pulsox 86% 6L nc, was 97% at beginning of shift 4L. Non-rebreather mask placed on pt 15L, sat continued to drop. Pt extremely
diaphoretic. Pt became unable to form words. Pt then went unresponsive. Intubated.
CODE 9 - SEE CODE SHEET
[2024-04-05 23:54] LABS: B.E. -15.2 mmol/L; PCO2 48 mmHg (35-48); PO2 183 mmHg (83-108)
[2024-04-05 23:55] LABS: pH 7.07 (7.35-7.45)
[2024-04-05 23:56] LABS: HCO3 13.9 mmol/L (21-28)
[2024-04-06] VITALS: BP 68/48
[2024-04-06 00:15] VITALS: BP 47/23
[2024-04-06 00:27] LABS: Lactic Acid 15.6 mmol/L (0.7-2.0)
[2024-04-06 00:30] VITALS: BP 71/34
[2024-04-06 00:45] VITALS: BP 81/60
[2024-04-06 01:00] VITALS: BP 71/42
--- NOTE | 2024-04-06 01:39 | W.PN.DEATH ---
Pronouncement of
-
Called to see patient to pronounce.
No spontaneous heart tones or respirations noted.
Patient not responsive to verbal stimuli.
Patient is pronounced .
Time of : 01:11
Date of : 04/06/24
Cause of : Perforated Viscus, multiple organ dysfunction syndrome, septic shock, acute limb ischemia
Family Notified: Yes
[2024-04-06] MEDS: SODIUM BICARBONATE IV (02:07)
--- NOTE | 2024-04-06 05:46 | PTCARENOTE ---
Postmortem care completed on pt. No personal items on pt or in room.
--- NOTE | 2024-04-06 09:47 | CM ---
Addendum entered by Chris Meraz 04/06/24 10:55:
CM received a phone call from pt's daughter and she stated she called [employer] [employer] [facility] and they want to talk to me again regarding body gift registry.
CM called [facility] [employer] [facility], spoke to client relations representative Anisa who is responsible for accepting bodies for [facility], detailed clinical provided and per Anisa, the body is accepted for [facility]. Per Anisa she will call pt's
daughter Jazmine to take her permission to work with a home to bring the body for one of [facility] places.
CM provided client relations representative Anisa from [facility] [employer] [facility] DH main phone number to coordinate releasing the body.
Pt's daughter Jazmine is aware of the above and she expressed her appreciation.
Original Note:
CM received a phone call from pt's daughter Jazmine [phone] and she is requested to call [facility] [employer] [facility].
CM called [facility] [employer] [facility] [phone], pt's clinical provided and CM was told because pt has a surgery they denied to accept the body for [facility].
HAYLEY related this message to pt's daughter Jazmine, she expressed her disappointment feelings, asked for information regarding cremation. [employer] phone number provided.
Pt's daughter expressed her appreciation. Emotional support offered and provided.
--- NOTE | 2024-04-07 07:59 | W.DCSUMMARY ---
Discharge Summary
Discharge Data
Date of Admission: 04/04/24
Date of Discharge: 04/06/24
-
Pending Results: No
Hospital Course
Mr. Hunt is a 78-year-old male with a medical history of hypertension, CAD (status post PCI 2004), bilateral popliteal artery aneurysms, AAA (status post repair at [facility] and 08/2021), longtime smoker (half pack per day x 50 years current smoker), and
hernia repair who presents from home with acute onset left leg pain and coldness. In the ED, he was found to be mildly hypertensive with initial BP of 184/97. Labs were remarkable for leukocytosis of 13.5, hemoglobin 12.4, and a glucose of 203. He
was immediately started on IV heparin drip and evaluated by vascular surgery team. He was admitted pending OR with vascular surgery for intervention on his left lower extremity for apparent acute limb ischemia. He underwent thrombectomy and
femoral-popliteal bypass on 04/04. The procedure successfully restored distal blood flow temporarily however he developed recurrent ischemia distal to the bypass graft. Amputation was being considered. He was transfused 3 units PRBCs for
perioperative bleeding. He was critically ill requiring 2 vasopressors postoperatively. He developed acute abdominal pain and stat x-rays of his chest and abdomen were ordered. He hemodynamically declined and developed respiratory distress. He
was intubated at that point. Postintubation his hemodynamics continued to decline and he was advanced to 4 vasopressors. X-ray showed free air in the abdomen. He then suffered cardiac arrest and received chest compressions for 3 minutes before
ROSC was achieved. After ROSC, general surgery was contacted regarding pneumoperitoneum noted on abdominal imaging. Due to being extremely high risk for surgery and considering medical futility, decision was made by family to make patient DNR and
not proceed with surgery. He was maintained on vasopressors until he on 04/06/2024 at 1:11 AM due to perforated viscus, multiple organ dysfunction syndrome, septic shock, and acute limb ischemia.
Discharge Plan
-
Patient Disposition:
Date/Time
Date/Time: 04/06/24 01:11
Discharge Date and Time
Discharge Date/Time: 04/06/24 01:11
Print Language: AMERICAN
== END 2024-04-06 01:11 | disposition expired | DRG 252 ==
LOC: ICU 11:56
PROVIDERS: Internal Medicine Critical Care Medicine; Nurse Practitioner Acute Care; Nurse Practitioner Family; Nurse Practitioner Primary Care; Physician Assistant Medical; ADMITTING PHYSICIAN Internal Medicine; CONSULT PHYSICIAN Specialist; EMERGENCY PHYSICIAN Emergency Medicine; FAMILY PHYSICIAN Internal Medicine; OTHER PHYSICIAN Internal Medicine Critical Care Medicine; OTHER PHYSICIAN Surgery Vascular Surgery
PROC: 04CW0ZZ Extirpation of Matter from Left Foot Artery, Open Approach (ICD-10-PCS; 2024-04-04)
PROC: 04CQ0ZZ Extirpation of Matter from Left Anterior Tibial Artery, Open Approach (ICD-10-PCS; 2024-04-04)
PROC: 04CN0ZZ Extirpation of Matter from Left Popliteal Artery, Open Approach (ICD-10-PCS; 2024-04-04)
PROC: 041L0JL Bypass Left Femoral Artery to Popliteal Artery with Synthetic Substitute, Open Approach (ICD-10-PCS; 2024-04-04)
PROC: 0BH17EZ Insertion of Endotracheal Airway into Trachea, Via Natural or Artificial Opening (ICD-10-PCS; 2024-04-05)
PROC: 02HV33Z Insertion of Infusion Device into Superior Vena Cava, Percutaneous Approach (ICD-10-PCS; 2024-04-05)
PROC: 5A12012 Performance of Cardiac Output, Single, Manual (ICD-10-PCS; 2024-04-05)
PROC: B5181ZA Fluoroscopy of Superior Vena Cava using Low Osmolar Contrast, Guidance (ICD-10-PCS; 2024-04-05)
DX: I74.3 Embolism and thrombosis of arteries of the lower extremities (principal); A41.9 Sepsis, unspecified organism; R65.21 Severe sepsis with septic shock; T81.19XA Other postprocedural shock, initial encounter; K55.059 Acute (reversible) ischemia of intestine, part and extent unspecified; E87.20 Acidosis, unspecified; N17.9 Acute kidney failure, unspecified; I72.4 Aneurysm of artery of lower extremity; D64.9 Anemia, unspecified; I70.222 Atherosclerosis of native arteries of extremities with rest pain, left leg; I25.10 Atherosclerotic heart disease of native coronary artery without angina pectoris; I11.9 Hypertensive heart disease without heart failure; F17.210 Nicotine dependence, cigarettes, uncomplicated; E78.00 Pure hypercholesterolemia, unspecified; J44.9 Chronic obstructive pulmonary disease, unspecified; Y83.8 Other surgical procedures as the cause of abnormal reaction of the patient, or of later complication, without mention of misadventure at the time of the procedure; Z79.82 Long term (current) use of aspirin; Z79.899 Other long term (current) drug therapy; Z86.79 Personal history of other diseases of the circulatory system; Z95.5 Presence of coronary angioplasty implant and graft
CPT/HCPCS: 88304; 34203; 35656; 71045; 74018; 75635; 80048; 80076; 82330; 82550; 82805; 82962; 83036; 83605; 83735; 84100; 84132; 84302; 85014; 85018; 85025; 85027; 85610; 85730; 86850; 86900; 86901; 86920; 93005; 93306; 94002; 94003; 96365; 99291; C1757; C1768; J2997; P9016; Q9950; Q9967